=== PATIENT | female | born 1955 | race Caucasian/White ===

== ENCOUNTER → 2016-11-27 | Outpatient (CLI) | payer BC ==
[~2016-11-27] MED LIST: AMLO-110 PO; ASPCH81X PO; ATOR-24 PO; ELQ25 PO; METO50TA16 PO
--- NOTE | 2016-11-27 16:53 | DIAGNOSTIC IMAGING REPORT ---
LEFT FOOT MIN 3 VIEWS ROUTINE CLINICAL HISTORY: Left foot pain COMPARISON: None. DISCUSSION: No acute fractures are visualized. There are no erosive changes. There are osteoarthritic type changes at the level of the tarsometatarsal joints. IMPRESSION: 1. No acute fractures identified on conventional radiographic imaging 2. Osteoarthritic changes at the level of the tarsometatarsal joints Electronically signed by: Sky Glass M.D. 11/27/2016 4:52 PM Dictated Date/Time: 11/27/2016 4:51 PM
== END | disposition home or self-care (01) ==
LOC: C.RAD 16:36
PROVIDERS: ATTEND Family Medicine
DX: M84.375A Stress fracture, left foot, initial encounter for fracture (principal); X58.XXXA Exposure to other specified factors, initial encounter; M19.072 Primary osteoarthritis, left ankle and foot

== ENCOUNTER → 2016-12-06 | Outpatient (CLI) | payer BC ==
--- NOTE | 2016-12-09 15:13 | MAMMOGRAPHY REPORT ---
BILATERAL DIGITAL SCREENING MAMMOGRAM TOMOSYNTHESIS WITH CAD: 12/06/2016 TECHNIQUE: Breast tomosynthesis in addition to standard 2D mammography was performed. Current study was also evaluated with a Computer Aided Detection (CAD) system. COMPARISON: Comparison is made to exams dated: 08/24/2015 mammogram, 07/29/2014 mammogram, 05/04/2013 mammogram, and 06/26/2011 mammogram - [facility]. BREAST COMPOSITION: There are scattered areas of fibroglandular density in both breasts. FINDINGS: No suspicious masses, calcifications, or areas of architectural distortion are noted in e ither breast. There has been no significant interval change compared to prior exams. IMPRESSION: ACR BI-RADS CATEGORY 1: NEGATIVE There is no mammographic evidence of malignancy. A 1 year screening mammogram is recommended. The p atient will receive written notification of the results. Approximately 10% of breast cancers are not detected with mammography. A negative mammographic repor t should not delay biopsy if a clinically suggestive mass is present. Kirstin Mendosa M.D. ah/:12/06/2016 15:33:33 Hotel Ma[employer]: Eloisa HADLEY)([place]), [facility] letter sent: Normal 1/2 BI-RADS Code: ACR BI-RADS Category 1: Negative
== END | disposition home or self-care (01) ==
LOC: C.MAMM 14:52
PROVIDERS: ATTEND Obstetrics & Gynecology
DX: Z12.31 Encounter for screening mammogram for malignant neoplasm of breast (principal)

== ENCOUNTER 2021-12-13 05:25 | Observation (INO) ==
--- NOTE | 2021-12-05 10:11 | PAT Medication Instructions ---
Medication Instructions Date of Service December 05, 2021 Home Medications apixaban 5 mg tablet (Eliquis) 5 mg PO BID aspirin 81 mg capsule 81 mg PO HS docusate sodium 100 mg capsule (Colace) 100 mg PO DAILY PRN metoprolol succinate 50 mg tablet,extended release 24 hr 50 mg PO HS tramadol 50 mg tablet 50 mg PO BID PRN ASK your prescriber and surgeon apixaban 5 mg tablet (Eliquis) 5 mg PO BID (will need to stop medications 72 hours prior to surgery in order to get spinal anesthesia) DO NOT take the morning of surgery docusate sodium 100 mg capsule (Colace) 100 mg PO DAILY PRN Take morning of surgery With a small sip of water, OTHERWISE NOTHING TO EAT OR DRINK AFTER MIDNIGHT: tramadol 50 mg tablet 50 mg PO BID PRN (okay to take up to 4 hours prior to surgery if needed) Take evening before surgery aspirin 81 mg capsule 81 mg PO HS docusate sodium 100 mg capsule (Colace) 100 mg PO DAILY PRN (if needed) metoprolol succinate 50 mg tablet,extended release 24 hr 50 mg PO HS tramadol 50 mg tablet 50 mg PO BID PRN (if needed) Other Notes If you have any questions please call us at [phone] or [phone] or or [phone]
--- NOTE | 2021-12-05 12:14 | Anesthesiology Consultation ---
Date of Service December 05, 2021 Assessment & Plan (1) Encounter for pre-operative examination: Chart Review Chart Review: Acceptable Risk for Surgery (pending most recent cardio/PCP note and preop Covid testing results ) and Patient seen in Pre Admission Testing - Awaiting most recent cardio note 09/2021 - Awaiting most recent PCP note * Per patient- cardio instructed her to stop Eliquis 3 days prior. Continue ASA 81mg Per PAT appt on 12/05/21, patient denies any recent travel or large group activities. No known Covid positive exposures or Covid related symptoms. Pt states she did test Covid positive on 10/15/21 at the [facility] (she will attempt to get PAT results). Pt is vaccinated for Covid. Preop Covid testing scheduled 12/11/21 = will await results. Educated on importance of self quarantining, social distancing and wearing mask in public for the patient one week prior to surgery and after Covid testing done Teaching & Discussion Pre-Anesthesia Teaching/Discussion Notes: Instructed NPO after midnight before surgery,except medications with 15 cc of water. Medication instructions p rovided according to the PAT guidelines. History Surgery Operation Date: 12/13/21 10:40 Proposed Procedures p Left Total Hip Arthroplasty - Ramses Vicente MD Height/Weight Height: 5 ft 4.5 in Weight: 69.7 kg Allergies Allergy/AdvReac Type Severity Reaction Status Date / Time salmon oil Allergy Severe FACIAL Verified 12/05/21 09:09 SWELLING Medications Home Medications Medication Instructions Recorded Confirmed Last Taken apixaban 5 mg tablet (Eliquis) 5 mg PO BID 09/26/21 12/05/21 Unknown aspirin 81 mg capsule 81 mg PO HS 09/26/21 12/05/21 Unknown docusate sodium 100 mg capsule 100 mg PO DAILY PRN 09/26/21 12/05/21 Unknown (Colace) metoprolol succinate 50 mg 50 mg PO HS 09/26/21 12/05/21 Unknown tablet,extended release 24 hr tramadol 50 mg tablet 50 mg PO BID PRN 12/05/21 12/05/21 Unknown Past Medical History Medical History (Updated 12/05/21 @ 15:43 by Nakita Alston PA-C) History of COVID-19 10/15/21 [facility] *TERRIBLE COLD SYMPTOMS>FEELING BETTER NOW Hypertension Osteoarthritis PVCs (premature ventricular contractions) Asymptomatic Severe mitral regurgitation S/p MV repair 2016 Stroke 2016- 6 months after mitral valve repair d/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 ALEJANDRE; Mild stenosis, no regurgitation per 08/2021 echo History of cardiac cath DONE BEFORE MV REPAIR No CAD History of colonoscopy History of tooth extraction Nausea and vomiting after administration of anesthetic agent Past Anesthesia History No Hx of Anesthesia Complications (with exception to PONV ) and No Family Hx of Anesthesia Complications History of PONV No Hx of Motion Sickness and History of PONV Social History Smoking Status: Former smoker tobacco type: cigarettes Smoking End Date: 2015 Hx Alcohol Use: Yes Alcohol type: wine alcohol intake frequency: a few times a week substance use type: does not use Review of Systems Patient denies chest pain, shortness of breath, dyspnea on exertion, reflux, cough, wheezing, palpitations. No hx of seizures, [place], apnea/snoring. No hx of blood clots or blood transfusions Physical Exam Vital Signs VITALS BP 127/78 P 73 TEMP 97.7 SP02 94% RESP 16 Constitutional no acute distress ENMT Mouth: no TMJ clicking Thyromental Distance: > or= 3.5 Finger Breadths (3.5) Mallampati Class: III Missing molar Neck neck extension not limited Respiratory normal respiratory effort; no respiratory distress Auscultation: lungs clear to auscultation bilaterally; no wheezes Cardiovascular Rate/Rhythm: regular rate and regular rhythm Heart Sounds: no murmur Vessels: no carotid bruit Musculoskeletal Spine: no pain with cervical ROM Extremities: extremities normal to inspection Psychiatric Orientation: alert Lab Results Anesthesia Preop Results Results Anesthesia Widget: WBC 3.92 K/uL (4.8-10.8) L 12/05/21 Hgb 13.2 g/dL (12.0-16.0) 12/05/21 Hct 39.5 % (37-47) 12/05/21 Plt 254 K/uL (130-400) 12/05/21 Na 138 mmol/L (136-145) 12/05/21 K 5.0 mmol/L (3.5-5.1) 12/05/21 Cl 105 mmol/L (98-107) 12/05/21 CO2 29 mmol/L (21-32) 12/05/21 BUN 18 mg/dl (6-23) 12/05/21 Creat 0.61 mg/dl (0.6-1.2) 12/05/21 Fasting Glucose 102 mg/dl (70-99) H 12/05/21 PT 10.5 Seconds (9.0-12.0) 12/05/21 INR 1.0 (0.9-1.1) 12/05/21 HA1c 4.9 % (4.5-5.6) 12/05/21 Urine Color Yellow 12/05/21 Urine Appearance Clear (Clear) 12/05/21 Urine pH 5.0 (4.5-7.5) 12/05/21 Urine Specific [place] 1.023 (1.000-1.030) 12/05/21 Urine Protein Negative (Negative) 12/05/21 Urine Glucose (UA) Negative (Negative) 12/05/21 Urine Ketones Negative (Negative) 12/05/21 Urine Blood Negative (Negative) 12/05/21 Urine Nitrite Negative (Negative) 12/05/21 Urine Bilirubin Negative (Negative) 12/05/21 Urine Urobilinogen Negative (Negative) 12/05/21 Urine Leukocyte Esterase Negative (Negative) 12/05/21 Blood Type A Positive 12/05/21 Antibody Screen NEGATIVE 12/05/21 Testing Electrocardiogram Date: 11/30/21 Findings: + NSR @ (72bpm ) Possible LAE. Echocardiogram Date: 08/24/21 EF: 68% LV Function: normal RWMA: + none Other Findings: no LVH Mildly dilated right and left atrium Status post posterior mitral valve leaflet resection and MV repair with 26 mm annuloplasty ring. No MR. Mild mitral stenosis. MV mean pressure gradient is 5 mmHg. MVA by PHT is 1.5 cm. Compared to the previous study performed 08/21/2017, there is no change.
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
[2021-12-13] MEDS ORDERED: Scopolamine 1 MG TDSY TD SCH (06:00)
[2021-12-13] MEDS ORDERED: LR 500ML BOLUS, THEN 15ML/HR IV SCH (06:00)
[2021-12-13] MEDS ORDERED: LR 60ML/HR IV SCH (06:00)
[2021-12-13] MEDS ORDERED: traMADol HCL 50 MG TABLET PO SCH (06:00)
[2021-12-13] MEDS ORDERED: FAMOTIDINE 20 MG TAB PO SCH (06:00)
[2021-12-13] MEDS ORDERED: ROPIVACAINE 0.5% HCL/PF 150 MG, BUPIVACAINE 0.75% MPF 20 ML, EPINEPHrine 0.15 MG, Ketor... INFIL SCH (06:00)
[2021-12-13] MEDS ORDERED: CLINDAMYCIN 600 MG/54 ML BAG IV SCH (06:00)
[2021-12-13] MEDS ORDERED: ACETAMINOPHEN 500 MG TAB PO SCH (06:00)
[2021-12-13] MEDS ORDERED: TRANEXAMIC ACID 1,000 MG **IV Pre-op IV SCH (06:00)
[2021-12-13] MEDS ORDERED: TRANEXAMIC ACID 1,000 MG **IV Intra-op IV SCH (06:00)
[2021-12-13] MEDS ORDERED: BUPIVACAINE 0.5 % 5 MG/1 ML PF 10ML VIAL ONE (06:23)
[2021-12-13] MEDS ORDERED: MIDAZOLAM HCL 1 MG/ML 2ML VIAL ONE (06:29)
[2021-12-13] MEDS ORDERED: LIDOCAINE 2% 2 ML VIAL/AMP(20MG/ML) INFIL ONE (06:29)
[2021-12-13] MEDS ORDERED: ONDANSETRON INJ 2 MG/ML 2 ML VIAL ONE (06:29)
[2021-12-13] MEDS ORDERED: PROPOFOL IV EMULSION 10 MG/ML 20 ML VIAL IV ONE (06:29)
[2021-12-13] MEDS ORDERED: ePHEDrine sulfate 50 MG/ML AMP IV PRN (06:39)
[2021-12-13] MEDS ORDERED: fentaNYL citrate 100 MCG/2 ML VIAL IV PRN (06:39)
[2021-12-13] MEDS ORDERED: ATROPINE SULFATE 0.1 MG/ML 10ML SYR IV PRN (06:39)
[2021-12-13] MEDS ORDERED: ONDANSETRON INJ 2 MG/ML 2 ML VIAL IV PRN ×2 (06:39→08:39)
--- NOTE | 2021-12-13 06:46 | History & Physical Bridge Note ---
Date of Service December 13, 2021 History & Physical Bridge Note I have examined the patient, reviewed the History & Physical and in the interval since the performance of the History & Physical I have noted the following changes of clinical significance: no changes noted
[2021-12-13] MEDS ORDERED: ORTHO JOINT ANESTHETIC ONE (07:10)
--- NOTE | 2021-12-13 08:32 | Operative Report ---
Post Operative Report Pre & Post Diagnosis Operation Date: 12/13/21 07:00 Pre-Op Diagnosis: Left Hip Osteoarthritis Post-Op Diagnosis: Left Hip Osteoarthritis I identified the patient and participated in the time-out.: Yes Procedure Operation Date: 12/13/21 07:00 Actual Procedures p Left Total Hip Arthroplasty(Left) - Ramses Vicente MD Surgeon Ramses Vicente MD Nanotechnology Technician RENALDO Diana PA-C. No resident or fellow was available to assist. Estimated Blood Loss 100 Findings Consistent with Post-Op Diagnosis Specimens Left femoral head Anesthesia Type Spinal MAC Complications none Disposition Disposition: Recovery Room Indications 66-year-old female with left hip arthritis refractory to conservative management. X-rays demonstrate [id number] disease. I had a long discussion with her about the risks and benefits of surgery, alternatives to surgery, and expected outcomes. After reviewing all these she elected proceed with surgery. All questions were answered. Informed consent was signed. Description of Procedure Patient was identified in the preoperative holding area and the surgical site, left hip, was marked. A spinal anesthetic was placed, then the patient was brought back to the main operating room, placed in the operating table and moved into the lateral decubitus position. Axillary roll was placed. All bony prominences were padded. Perioperative antibiotics and tranexamic acid 1 gram IV were administered. Operative extremity was prepped and draped in the normal sterile fashion. Prior to incision a multidisciplinary timeout was called. All in the room were in agreement. We began by making an incision for a posterior approach to the hip. We dissected down through subcutaneous tissues to the level of the fascia. The fascia was incised in line with the incision. Charnley bow was placed. The trochanteric bursa was excised. The piriformis and short external rotators were dissected off the posterior aspect of the hip. A box cut was made in the capsule. The femoral head was dislocated. The femoral neck cut was made at our preoperative template. The acetabulum was then exposed. The labrum was sharply excised. Contents of the cotyloid fossa were removed with electrocautery. We then began reaming at a size 8 mm less than our preoperative template. We reamed up by 1 [address] the way up to a size 52 mm cup. This gave us good bleeding cancellus bone circumferentially. The acetabulum was then irrigated out and dried. The real [place] Gription cup was then impacted down into position with 45 degrees of lateral opening and 25 degrees of anteversion. A single cancellous bone screw was placed up into the ilium. Excellent fixation was obtained. An Altrx polyethylene liner for a 32 mm femoral head was then impacted into the shell. The locking mechanism was checked to ensure that it had engaged which it had. Anterior osteophytes were removed with a curved osteotome and pituitary rongeur. Next we turned our attention to the femur. The lateral neck was removed with a box osteotome. Intramedullary guide was used followed by the lateralizing reamer. We then reamed up to a size 5 Monroe stem. We then broached all the way up to a size 4. We began trialing with a high offset neck and a +1 head. Hip was reduced. Leg lengths were symmetric. The hip was stable in extension and external rotation, and stable in the sleeper position. At 90 degrees of hip flexion the hip could be internally rotated 50 degrees before levering out of the cup. I was very happy with the stability exam. Therefore the hip was dislocated and the femoral trial was removed. The femoral canal was irrigated and dried. The real size 4 high offset Monroe femoral stem was opened up. This was impacted down into position. It sat at the same level as the femoral trial. Therefore the 32 mm ceramic femoral head with a +1 mm offset was opened up and gently impacted down onto the trunnion. The hip was atraumatically reduced. Another 1 gram of IV tranexamic acid was started prior to closure. The wound was irrigated out with sterile Betadine solution. The periarticular injection cocktail was then placed. The short external rotators, piriformis, and posterior capsule were repaired through drill holes in the greater trochanter using #2 Vicryl. The fascia was run with a looped #1 PDS. The subcutaneous layer was closed with #1 PDS. The dermal layer was closed with 2-0 Vicryl. Zip line was used for the skin followed by a Silverlon dressing. A compressive dressing was then placed. The patient was then rolled supine. Leg lengths were rechecked and were symmetric. An abduction pillow was placed. Sedation was lifted and the patient was transferred to recovery room in stable condition. Summary of implants: Depuy [place] Gription Acetabular Shell Sector Cup, 52 mm outer diameter [place] Cancellous bone screw, 6.5 x 40 mm [place] Altrx Polyethylene Acetabular Liner, Neutral, with a 32 mm inner d iameter DePuy [place] Femoral stem with Por[place]oat, 12/14 taper, size 4 high offset 32 mm ceramic femoral head with +1 offset Postoperative course: Patient will be admitted to the hospital from the recovery room. Patient will be weightbearing as tolerated with posterior hip precautions. Aspirin for DVT prophylaxis I attest to the content of the Intraoperative Record and any orders documented therein. Any exceptions are noted below.
[2021-12-13] MEDS ORDERED: diphenhydrAMINE 50 MG/ML VIAL IV PRN (08:39)
[2021-12-13] MEDS ORDERED: bisacodyL 10 MG SUPP PR PRN (08:39)
[2021-12-13] MEDS ORDERED: METOCLOPRAMIDE HCL INJ 5 MG/ML 2 ML VIAL IV PRN (08:39)
[2021-12-13] MEDS ORDERED: MAGNESIUM HYDROXIDE SUSP 30 ML UDC PO PRN (08:39)
[2021-12-13] MEDS ORDERED: NALOXONE HCL 0.4 MG/1 ML VIAL/CARP IV PRN (08:39)
[2021-12-13] MEDS ORDERED: oxyCODONE HCL IR 5 MG TAB (IMMEDIATE RELEASE) PO PRN (08:39)
[2021-12-13] MEDS ORDERED: ALUMINUM/MAGNESIUM SUSP 30 ML UDC PO PRN (08:39)
--- NOTE | 2021-12-13 08:39 | Operative Report ---
Post Operative Report Pre & Post Diagnosis Operation Date: 12/13/21 07:00 Pre-Op Diagnosis: Left Hip Osteoarthritis Post-Op Diagnosis: Left Hip Osteoarthritis I identified the patient and participated in the time-out.: Yes Procedure Operation Date: 12/13/21 07:00 Actual Procedures p Left Total Hip Arthroplasty(Left) - Ramses Vicente MD Surgeon Ramses Vicente MD Relocation Associate RENALDO Diana PA-C. No resident or fellow was available to assist. Estimated Blood Loss 100 Findings Consistent with Post-Op Diagnosis Specimens left femoral head Description of Procedure I was present during the entire procedure assisting with positioning, prepping, draping, wound retraction, wound closure, dressing and abduction pillow placement. No fellow present. Please see Dr. Vicente procedure note for specifics of the case. I attest to the content of the Intraoperative Record and any orders documented therein. Any exceptions are noted below.
[2021-12-13] MEDS ORDERED: DOCUSATE SODIUM 100 MG CAP PO PRN (08:44)
[2021-12-13] MEDS ORDERED: traMADol HCL 50 MG TABLET PO PRN (08:44)
[2021-12-13] MEDS ORDERED: APIXABAN 5 MG TABLET PO SCH (09:00)
--- NOTE | 2021-12-13 09:00 | XRay Report ---
XR pelvis 1-2V routine HISTORY: 66 years-old Female Post Surgical left hip total joint arthroplasty COMPARISON: Pelvis radiograph 12/05/2021 TECHNIQUE: AP view of the pelvis FINDINGS: Left hip total joint arthroplasty. Expected postoperative soft tissue swelling and deep tissue air aguilar rrounding the left hip. Moderate right hip osteoarthritis. Surgical clips of the left inguinal tissue s. No acute fracture or unexpected opaque foreign body. IMPRESSION: Left hip total joint arthroplasty with expected postoperative findings. ACT 112: Negative or not required by law. The above report was generated using voice recognition software. It may contain grammatical, syntax o r spelling errors. Electronically signed by: Fabrice Dobbs M.D. 12/13/2021 8:59 AM
[2021-12-13] MEDS: SODIUM CHLORIDE 0.9% 1000ML 1,000 ML IV SCH ×2 (12:00→22:14)
--- NOTE | 2021-12-13 12:25 | Anesthesiology Progress Note ---
Date of Service December 13, 2021 Anesthesia Post Procedure Vital Signs Vital Signs: Temp Pulse Pulse Resp BP BP Pulse Ox 12/13/21 11:25 61 17 107/67 97 12/13/21 10:55 60 18 110/68 92 12/13/21 10:25 57 L 18 111/68 91 12/13/21 10:10 57 L 15 108/66 96 12/13/21 09:55 60 18 107/68 95 12/13/21 09:40 59 L 20 108/66 94 12/13/21 09:25 97.0 F L 59 L 16 103/69 94 12/13/21 09:15 61 19 92/58 L 97 12/13/21 09:05 61 17 93/57 L 93 12/13/21 08:55 61 16 96/65 L 100 12/13/21 08:45 64 20 87/49 L 99 12/13/21 08:37 97.2 F L 68 20 96/58 L 98 12/13/21 05:50 97.7 F 74 20 137/96 95 Transfer of Care Handoff Completed per policy Notes Mental Status: alert / awake / arousable and participated in evaluation Patient Amnestic to Procedure: Yes Nausea / Vomiting: adequately controlled Pain: adequately controlled Airway Patency, RR, SpO2: stable & adequate BP & HR: stable & adequate Hydration State: stable & adequate Neuraxial Anesthesia: was administered and sensory block is resolving Anesthetic Complications: no major complications apparent and Pt Satisfied with anesthetic care
[2021-12-13] MEDS: MULTIVITAMIN TAB PO SCH (13:31)
[2021-12-13] MEDS: APIXABAN 2.5 MG TAB PO SCH ×2 (13:31→20:45)
[2021-12-13] MEDS: CeleBREX 200 MG CAP PO SCH ×2 (13:31→20:44)
[2021-12-13] MEDS: DOCUSATE SODIUM 100 MG CAP PO SCH ×2 (13:31→20:48)
[2021-12-13] MEDS: ACETAMINOPHEN 500 MG TAB PO SCH ×2 (13:31→22:15)
[2021-12-13] MEDS: KETOROLAC TROMETHAMINE 15 MG/ML VIAL IV SCH ×3 (13:35→22:16)
[2021-12-13] MEDS ORDERED: TRANEXAMIC ACID / 0.7% NACL 1,000 MG/100 ML BAG IV SCH (14:45)
[2021-12-13] MEDS: CLINDAMYCIN 600 MG in DEXTROSE 5% 50 ML IV SCH ×2 (15:24→22:14)
[2021-12-13] MEDS: Scopolamine CHECK PATCH PLACEMENT SCH ×2 (16:02→23:37)
[2021-12-13] MEDS ORDERED: ASPIRIN 81 MG ECTAB PO SCH (21:00)
[2021-12-13] MEDS ORDERED: SENNA 8.6 MG TAB PO SCH (21:00)
[2021-12-13] MEDS ORDERED: METOPROLOL SUCC 50MG EXT REL TAB PO SCH (21:00)
[2021-12-14] MEDS: KETOROLAC TROMETHAMINE 15 MG/ML VIAL IV SCH (04:34)
[2021-12-14] MEDS: ACETAMINOPHEN 500 MG TAB PO SCH ×2 (05:34→14:44)
[2021-12-14] MEDS: SODIUM CHLORIDE 0.9% 1000ML 1,000 ML IV SCH (06:10)
[2021-12-14 06:17] LABS: Basophils # (auto) 0.03 K/uL (0-0.2); Basophils % (auto) 0.5 %; Eosinophils # (auto) 0.04 K/uL (0-0.5); Eosinophils % (auto) 0.7 %; Hematocrit (blood only) 32.7 % (37-47); Hemoglobin 10.9 g/dL (12.0-16.0); Immature Granulocytes # (auto) 0.01 K/uL (0.00-0.02); Immature Granulocytes % (auto) 0.2 %; Lymphocytes # (auto) 0.75 K/uL (1.2-3.4); Lymphocytes % (auto) 12.4 %; Mean Corpuscular Hemoglobin 32.6 pg (25-34); Mean Corpuscular Hgb Conc 33.3 g/dL (32-36); Mean Corpuscular Volume 97.9 fL (80-100); Mean Platelet Volume 10.6 fL (7.4-10.4); Monocytes # (auto) 0.58 K/uL (0.11-0.59); Monocytes % (auto) 9.6 %; Neutrophils # (auto) 4.64 K/uL (1.4-6.5); Neutrophils % (auto) 76.6 %; Platelet Count 189 K/uL (130-400); RDW Coefficient of Variation 13.5 % (11.5-14.5); RDW Standard Deviation 48.1 fL (36.4-46.3); Red Blood Count 3.34 M/uL (4.2-5.4); White Blood Count 6.05 K/uL (4.8-10.8)
[2021-12-14 06:47] LABS: Calcium 8.2 mg/dl (8.5-10.1); Creatinine Clr Calc Pharmacy 102.8 ml/min; Est GFR (African American) 116.3 ml/min; Est GFR (Non-African American) 100.3 ml/min; Potassium 4.3 mmol/L (3.5-5.1)
[2021-12-14] MEDS: Scopolamine CHECK PATCH PLACEMENT SCH (07:30)
[2021-12-14] MEDS ORDERED: dexAMETHasone 4 MG TAB PO SCH (08:00)
[2021-12-14] MEDS: MULTIVITAMIN TAB PO SCH (09:04)
[2021-12-14] MEDS: CeleBREX 200 MG CAP PO SCH (09:05)
[2021-12-14] MEDS: APIXABAN 2.5 MG TAB PO SCH (09:05)
[2021-12-14] MEDS: DOCUSATE SODIUM 100 MG CAP PO SCH (09:08)
--- NOTE | 2021-12-14 13:30 | Orthopedic Progress Note ---
Date of Service December 14, 2021 Assessment & Plan (1) S/P total hip arthroplasty: Plan: Weightbearing as tolerated with walker assistance Total hip precautions were reviewed PT/OT Keep Silverlon in place DVT prophylaxis with Eliquis, aspirin and teds Pain control with p.o. medication Ice with easy wrap Follow-up with [facility] orthopedics as previously instructed With questions contact our clinic at [phone] Plan on discharge home today with in-home physical therapy for the first 2 weeks postoperatively. Admission and Anticipated Discharge Date Admission Date: December 13, 2021 Subjective This 66-year-old female is day 1 status post left total hip arthroplasty. She states she is doing very well. She is very anxious to be discharged home. States her pain is well controlled with p.o. pain medication. She states that last night she did have some nausea that was controlled with IV antiemetic medication. She states that she has met with case management and set up for in- home physical therapy for the first 2 weeks postoperatively. Currently she denies Chest pain, shortness of breath, fever, chills, sweats, lethargy, nausea, vomiting, diarrhea or difficulty urinating. Patient also denies any numbness or tingling in her left lower extremity. Review of Systems Review of Systems: All systems reviewed & are unremarkable except as noted in Subjective Physical Exam Physical Exam: Left hip: Outer dressing was removed. Silverlon is intact with no saturation. Patient is able to perform an active straight leg raise test. She is able to actively dorsi and plantarflex her foot. Knee range of motion is from 0 to 90 degrees without difficulty. Light passive hip flexion causes no pain. Light passive internal and external hip rotation causes no pain. Logroll test negative. Quad strength is 1-5. Patient is neurovascularly intact in left lower extremity. Results & Data ([facility]) Vital Signs (Past 12 Hours) Vital Signs Temp Pulse Pulse Resp BP BP Pulse Ox 12/14/21 13:17 36.9 C 70 69 16 105/67 97/61 L 94 12/14/21 07:29 36.9 C 70 16 105/67 94 12/14/21 04:31 36.8 C 69 14 97/61 L 93 Diagnostic Findings Laboratory Results WBC 6.05 K/uL (4.8-10.8) 12/14/21 06:04 RBC 3.34 M/uL (4.2-5.4) L 12/14/21 06:04 Hgb 10.9 g/dL (12.0-16.0) L 12/14/21 06:04 Hct 32.7 % (37-47) L 12/14/21 06:04 MCV 97.9 fL (80-100) 12/14/21 06:04 MCH 32.6 pg (25-34) 12/14/21 06:04 MCHC 33.3 g/dL (32-36) 12/14/21 06:04 RDW Std Deviation 48.1 fL (36.4-46.3) H 12/14/21 06:04 RDW Coeff of Aimee 13.5 % (11.5-14.5) 12/14/21 06:04 Plt Count 189 K/uL (130-400) 12/14/21 06:04 MPV 10.6 fL (7.4-10.4) H 12/14/21 06:04 Immature Gran % (Auto) 0.2 % 12/14/21 06:04 Neut % (Auto) 76.6 % 12/14/21 06:04 Lymph % (Auto) 12.4 % 12/14/21 06:04 Love % (Auto) 9.6 % 12/14/21 06:04 Eos % (Auto) 0.7 % 12/14/21 06:04 Baso % (Auto) 0.5 % 12/14/21 06:04 Neut # (Auto) 4.64 K/uL (1.4-6.5) 12/14/21 06:04 Lymph # (Auto) 0.75 K/uL (1.2-3.4) L 12/14/21 06:04 Love # (Auto) 0.58 K/uL (0.11-0.59) 12/14/21 06:04 Eos # (Auto) 0.04 K/uL (0-0.5) 12/14/21 06:04 Baso # (Auto) 0.03 K/uL (0-0.2) 12/14/21 06:04 Immature Gran # (Auto) 0.01 K/uL (0.00-0.02) 12/14/21 06:04 Sodium 137 mmol/L (136-145) 12/14/21 06:04 Potassium 4.3 mmol/L (3.5-5.1) 12/14/21 06:04 Chloride 108 mmol/L (98-107) H 12/14/21 06:04 Carbon Dioxide 25 mmol/L (21-32) 12/14/21 06:04 Anion Gap 4 (3-11) 12/14/21 06:04 BUN 9 mg/dl (6-23) 12/14/21 06:04 Creatinine 0.53 mg/dl (0.6-1.2) L 12/14/21 06:04 Est Cr Clr Drug Dosing 102.8 ml/min 12/14/21 06:04 Est GFR ( Amer) 116.3 ml/min 12/14/21 06:04 Est GFR (Non-Af Amer) 100.3 ml/min 12/14/21 06:04 BUN/Creatinine Ratio 17.0 (10-20) 12/14/21 06:04 Glucose 123 mg/dl (70-99(Fasting)) H 12/14/21 06:04 Calcium 8.2 mg/dl (8.5-10.1) L 12/14/21 06:04 SARS-CoV-2, RNA, NAAT NEGATIVE (NEGATIVE) 12/13/21 05:40 Impressions Pelvis X-Ray 12/13/21 08:40 XR pelvis 1-2V routine HISTORY: 66 years-old Female Post Surgical left hip total joint arthroplasty COMPARISON: Pelvis radiograph 12/05/2021 TECHNIQUE: AP view of the pelvis FINDINGS: Left hip total joint arthroplasty. Expected postoperative soft tissue swelling and deep tissue air surrounding the left hip. Moderate right hip osteoarthritis. Surgical clips of the left inguinal tissues. No acute fracture or unexpected opaque foreign body. IMPRESSION: Left hip total joint arthroplasty with expected postoperative findings. ACT 112: Negative or not required by law. The above report was generated using voice recognition software. It may contain grammatical, syntax or spelling errors. Electronically signed by: Fabrice Dobbs M.D. 12/13/2021 8:59 AM
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
[2021-12-14] MEDS ORDERED: APIXABAN 5 MG TABLET PO SCH (21:00)
== END 2021-12-14 14:49 | disposition home health service (06) ==
LOC: PACUINP 05:25 → ASU 05:25 → 3E 12:09

== ENCOUNTER 2023-02-08 12:58 | Observation (INO) ==
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
[2023-02-08] MEDS ORDERED: fentaNYL citrate PF 100 MCG/2 ML VIAL IV ONE (15:23)
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
[2023-02-08] MEDS ORDERED: MoRPHine SULFATE 4 MG/ML 1 ML CARP\\VIAL IV STA (17:38)
[2023-02-08 18:31] LABS: Basophils # (auto) 0.03 K/uL (0-0.2); Basophils % (auto) 0.3 %; Eosinophils # (auto) 0.02 K/uL (0-0.50); Eosinophils % (auto) 0.2 %; Hematocrit (blood only) 39.7 % (37.0-47.0); Hemoglobin 13.7 g/dl (12.0-16.0); Immature Granulocytes # (auto) 0.05 K/uL (0.01-0.20); Immature Granulocytes % (auto) 0.5 %; Lymphocytes # (auto) 0.63 K/uL (1.2-3.4); Lymphocytes % (auto) 6.1 %; Mean Corpuscular Hgb Conc 34.5 g/dL (32.0-36.0); Mean Corpuscular Volume 95.7 fL (80.0-100.0); Mean Platelet Volume 10.8 fL (9.4-12.4); Monocytes # (auto) 0.55 K/uL (0.11-0.59); Monocytes % (auto) 5.4 %; Neutrophils # (auto) 8.99 K/uL (1.40-6.50); Neutrophils % (auto) 87.5 %; Platelet Count 210 K/uL (130-400); RDW Coefficient of Variation 12.4 % (11.5-14.5); RDW Standard Deviation 43.7 fL (36.4-46.3); Red Blood Count 4.15 M/uL (4.20-5.40); White Blood Count 10.27 K/ul (4.8-10.8)
[2023-02-08 18:37] LABS: Alanine Aminotransferase 15 U/L (7-52); Albumin Globulin Ratio 1.8 (0.9-2); Albumin Level 4.2 gm/dl (3.4-5.0); Alkaline Phosphatase 80 U/L (34-104); Anion Gap 7 (3-11); Aspartate Aminotransferase 23 U/L (13-39); BUN Creatinine Ratio 20.9 (10-20); Bilirubin,Total 0.8 mg/dl (0.2-1.0); Blood Urea Nitrogen 14 mg/dl (6-23); Calcium 9.1 mg/dl (8.6-10.3); Carbon Dioxide 26 mmol/L (21-32); Chloride 106 mmol/L (98-107); Est GFR (African American) 106.9 ml/min; Est GFR (Non-African American) 92.2 ml/min; Globulin 2.4 gm/dl (2.5-4.0); Glucose 114 mg/dl (70-99(Fasting)); Potassium 4.1 mmol/L (3.5-5.1); Sodium 139 mmol/L (136-145); Total Protein 6.6 gm/dl (6.0-8.3)
[2023-02-08 18:45] LABS: INR 1.1 (0.9-1.1); Partial Thromboplastin Time 27.1 Seconds (21.0-31.0); Prothrombin Time 11.6 Seconds (9.0-12.0)
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
[2023-02-08] MEDS ORDERED: MoRPHine SULFATE 4 MG/ML 1 ML CARP\\VIAL IV PRN (21:23)
[2023-02-08] MEDS ORDERED: ONDANSETRON INJ 2 MG/ML 2 ML VIAL IV PRN (21:23)
[2023-02-08] MEDS ORDERED: MoRPHine SULFATE 2 MG/ML CARP IV PRN (21:23)
[2023-02-08] MEDS ORDERED: POLYETHYLENE (MIRALAX) 17 GM PACK PO PRN (21:23)
[2023-02-08] MEDS: METOPROLOL SUCC 50MG EXT REL TAB PO SCH (22:32)
[2023-02-08] MEDS: ACETAMINOPHEN 500 MG TAB PO SCH (22:32)
[2023-02-09 08:01] LABS: BUN Creatinine Ratio 21.1 (10-20); Blood Urea Nitrogen 12 mg/dl (6-23); Calcium 8.4 mg/dl (8.6-10.3); Carbon Dioxide 24 mmol/L (21-32); Chloride 106 mmol/L (98-107); Creatinine Clr Calc Pharmacy 95.8 ml/min; Est GFR (African American) 112.7 ml/min; Est GFR (Non-African American) 97.3 ml/min; Glucose 95 mg/dl (70-99(Fasting))
[2023-02-09] MEDS: ACETAMINOPHEN 500 MG TAB PO SCH ×3 (08:04→20:25)
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
[2023-02-09 08:28] LABS: Basophils # (auto) 0.03 K/uL (0-0.2); Basophils % (auto) 0.5 %; Eosinophils # (auto) 0.19 K/uL (0-0.50); Eosinophils % (auto) 3.1 %; Hematocrit (blood only) 37.6 % (37.0-47.0); Hemoglobin 12.8 g/dl (12.0-16.0); Immature Granulocytes # (auto) 0.01 K/uL (0.01-0.20); Immature Granulocytes % (auto) 0.2 %; Lymphocytes # (auto) 0.69 K/uL (1.2-3.4); Lymphocytes % (auto) 11.3 %; Mean Corpuscular Hemoglobin 32.4 pg (25.0-34.0); Mean Corpuscular Volume 95.2 fL (80.0-100.0); Mean Platelet Volume 10.5 fL (9.4-12.4); Monocytes # (auto) 0.57 K/uL (0.11-0.59); Monocytes % (auto) 9.3 %; Neutrophils # (auto) 4.64 K/uL (1.40-6.50); Neutrophils % (auto) 75.6 %; Platelet Count 177 K/uL (130-400); RDW Coefficient of Variation 12.5 % (11.5-14.5); RDW Standard Deviation 43.5 fL (36.4-46.3); Red Blood Count 3.95 M/uL (4.20-5.40); White Blood Count 6.13 K/ul (4.8-10.8)
[2023-02-09 08:40] LABS: Potassium 3.9 mmol/L (3.5-5.1)
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
[2023-02-09 09:28] LABS: Magnesium 1.9 mg/dl (1.7-2.4)
--- NOTE | 2023-02-09 09:31 | XRay Report ---
XR chest 2V PA/lateral HISTORY: 67 years-old Female lung nodule follow-up study in a patient with a possible lung nodule COMPARISON: 02/08/2023 TECHNIQUE: AP and lateral views of the chest FINDINGS: Cardiac silhouette is enlarged. Cardiac valvular prosthesis. No pneumothorax, pleural effusion or air space consolidation. Previously described Ill-defined 1.4 cm nodular focus of the right upper lung is not identified on today's study. Mild cortical irregularity of the lateral right sixth rib again not ed. Mild right hemidiaphragmatic elevation. Degenerative changes of the shoulders and spine. IMPRESSION: 1. Cardiomegaly without acute process of the chest. 2. The previously questioned nodular density of the right upper lung is not seen on today's study. ACT 112: Negative or not required by law. The above report was generated using voice recognition software. It may contain grammatical, syntax o r spelling errors. Electronically signed by: Fabrice Dobbs M.D. 02/09/2023 9:29 AM
[2023-02-09 10:41] LABS: Appearance Urine Clear (Clear); Bilirubin Urine Negative (Negative); Blood Urine Negative (Negative); Color Urine Yellow; Glucose Urine UA Negative (Negative); Ketones Urine Negative (Negative); Leukocyte Esterase Urine Negative (Negative); Nitrite Urine Negative (Negative); Protein Urine Negative (Negative); Specific Gravity Urine 1.022 (1.000-1.030); Urobilinogen Urine Negative (Negative); pH Urine 5.5 (4.5-7.5)
[2023-02-09] MEDS ORDERED: ASPIRIN 81 MG ECTAB PO SCH (10:45)
[2023-02-09] MEDS: APIXABAN 5 MG TABLET PO SCH ×2 (12:46→20:25)
[2023-02-09] MEDS: oxyCODONE HCL IR 5 MG TAB (IMMEDIATE RELEASE) PO PRN ×2 (13:44→19:36)
[2023-02-09] MEDS: DOCUSATE SODIUM/SENNA 50/8.6MG TAB PO SCH (13:44)
--- NOTE | 2023-02-09 14:09 | Electrocardiogram Report ---
Test Reason : Blood Pressure : / mmHG Vent. Rate : 083 BPM Atrial Rate : 083 BPM P-R Int : 152 ms QRS Dur : 064 ms QT Int : 400 ms P-R-T Axes : -03 031 045 degrees QTc Int : 470 ms Poor data quality, interpretation may be adversely affected Normal sinus rhythm Normal ECG When compared with ECG of 27-JUN-2005 12:46, QRS duration has decreased Nonspecific T wave abnormality now evident in Anterior leads Confirmed by Campbell Dyer ([id number]) on 02/09/2023 2:08:58 PM Referred By: REFERRED SELF Confirmed By:Campbell Dyer
[2023-02-09] MEDS: METOPROLOL SUCC 50MG EXT REL TAB PO SCH (20:25)
[2023-02-10] MEDS: oxyCODONE HCL IR 5 MG TAB (IMMEDIATE RELEASE) PO PRN ×2 (06:31→10:45)
[2023-02-10 07:30] LABS: Hematocrit (blood only) 33.5 % (37.0-47.0); Hemoglobin 11.6 g/dl (12.0-16.0); Mean Corpuscular Hemoglobin 32.8 pg (25.0-34.0); Mean Corpuscular Hgb Conc 34.6 g/dL (32.0-36.0); Mean Corpuscular Volume 94.6 fL (80.0-100.0); Mean Platelet Volume 10.4 fL (9.4-12.4); Platelet Count 160 K/uL (130-400); RDW Coefficient of Variation 12.4 % (11.5-14.5); RDW Standard Deviation 43.2 fL (36.4-46.3); Red Blood Count 3.54 M/uL (4.20-5.40); White Blood Count 5.64 K/ul (4.8-10.8)
[2023-02-10 07:53] LABS: BUN Creatinine Ratio 17.2 (10-20); Calcium 8.5 mg/dl (8.6-10.3); Creatinine Clr Calc Pharmacy 94.2 ml/min; Est GFR (African American) 112.1 ml/min; Est GFR (Non-African American) 96.7 ml/min; Magnesium 1.8 mg/dl (1.7-2.4); Potassium 4.1 mmol/L (3.5-5.1)
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
[2023-02-10] MEDS: DOCUSATE SODIUM/SENNA 50/8.6MG TAB PO SCH (08:36)
[2023-02-10] MEDS: ACETAMINOPHEN 500 MG TAB PO SCH (08:36)
--- NOTE | 2023-02-10 10:30 | Orthopedic Progress Note ---
Date of Service February 10, 2023 Assessment & Plan (1) Closed fracture of right superior pubic ramus: Plan: She may weight-bear as tolerated on her right lower extremity with the assistance of a platform walker or quad cane. PT and OT as ordered. Ice to right hip as needed for pain and swelling. Active range of motion of her right hip, right knee and right ankle as tolerated. Follow-up in approximately 2 weeks as an outpatient for repeat x-rays of her pelvis. DVT as per medicine or an aspirin 81 mg daily for DVT prophylaxis (2) Closed fracture of left distal radius: Plan: No immobilization necessary of her left upper extremity. Ice and elevation as needed for pain or swelling. Allowed for active range of motion of her fingers, wrist and forearm and left hand. Nonweightbearing through the left wrist itself. May weight-bear through the forearm with a platform walker. No use of cane in her left hand. Follow-up in 2 weeks as scheduled for repeat x-rays of her left wrist. May use for light daily activities although no heavy pushing pulling or lifting. Admission and Anticipated Discharge Date Admission Date: February 08, 2023 Subjective Doing well this morning. Just finished her exercises with physical therapy. She has been using the quad cane in her right hand and feels most stable on this. Her left wrist is feeling much better. Less bruise. Less swollen. Right hip feels stiff and sore but otherwise has been managing. Physical Exam Musculoskeletal: Tolerates active range of motion of her hip, knee and ankle of her right lower extremity. No distal edema. Dorsalis pedis and posterior tibial pulses are 1+. Distal sensation is normal. She tolerates gentle range of motion of the left wrist. Mildly edematous. Mildly ecchymotic. Full range of motion of her fingers with flexion and extension. Distal pulses are 1+. Capillary fill is brisk. Distal sensation is normal in her left upper extremity. Results & Data Vital Signs (Past 12 Hours) Vital Signs Temp Pulse Pulse Resp BP Pulse Ox O2 Del Method 02/10/23 09:45 36.3 C L 75 73 16 119/79 97 02/10/23 07:02 36.3 C L 73 16 119/79 97 Room Air
[2023-02-10] MEDS ORDERED: ONDANSETRON 4 MG OD TAB PO STA (11:51)
== END 2023-02-10 13:22 | disposition home health service (06) ==
LOC: 3N 12:58 → ED 12:58 → SUATTDRO 18:10 → 3N 20:38

== ENCOUNTER 2024-12-02 05:17 | Observation (INO) ==
--- NOTE | 2024-11-18 12:54 | PAT Medication Instructions ---
Medication Instructions Date of Service November 18, 2024 Home Medications apixaban 5 mg tablet (Eliquis) 5 mg PO BID aspirin 81 mg capsule 81 mg PO HS metoprolol succinate 50 mg tablet,extended release 24 hr 50 mg PO HS acetaminophen 500 mg tablet (Tylenol Extra Strength) 1,000 mg PO TID PRN Pain ASK your prescriber and surgeon apixaban 5 mg tablet (Eliquis) 5 mg PO BID (From anesthesia perspective, Apixaban/Eliquis needs to be stopped 72 hours/3 days before surgery. Please check if okay with doctor that prescribes this to you) aspirin 81 mg capsule 81 mg PO HS Take morning of surgery With a small sip of water, OTHERWISE NOTHING TO EAT OR DRINK AFTER MIDNIGHT: acetaminophen 500 mg tablet (Tylenol Extra Strength) 1,000 mg PO TID PRN Pain (if needed) Take evening before surgery metoprolol succinate 50 mg tablet,extended release 24 hr 50 mg PO HS acetaminophen 500 mg tablet (Tylenol Extra Strength) 1,000 mg PO TID PRN Pain (if needed) Other Notes If you have any questions please call us at [phone] or [phone] or [phone] or [phone]
--- NOTE | 2024-11-18 12:54 | PAT Medication Instructions ---
Medication Instructions Date of Service November 18, 2024 Home Medications apixaban 5 mg tablet (Eliquis) 5 mg PO BID aspirin 81 mg capsule 81 mg PO HS metoprolol succinate 50 mg tablet,extended release 24 hr 50 mg PO HS acetaminophen 500 mg tablet (Tylenol Extra Strength) 1,000 mg PO TID PRN ASK your prescriber and surgeon apixaban 5 mg tablet (Eliquis) 5 mg PO BID(in order for spinal or epidural anesthesia, Eliquis needs to be stopped 72 hours/3 days before surgery. Please check if okay with doctor that prescribes this to you) aspirin 81 mg capsule 81 mg PO HS Take morning of surgery With a small sip of water, OTHERWISE NOTHING TO EAT OR DRINK AFTER MIDNIGHT: acetaminophen 500 mg tablet (Tylenol Extra Strength) 1,000 mg PO TID PRN(if needed) Take evening before surgery metoprolol succinate 50 mg tablet,extended release 24 hr 50 mg PO HS acetaminophen 500 mg tablet (Tylenol Extra Strength) 1,000 mg PO TID PRN(if needed) Other Notes If you have any questions please call us at [phone] or [phone] or [phone] or [phone]
--- NOTE | 2024-11-22 14:22 | Anesthesiology Consultation ---
Date of Service November 22, 2024 Assessment & Plan (1) Encounter for pre-operative examination: - patient reports that still had post-op nausea and vomiting with left ARMEN despite Zofran. Left ARMEN 12/13/21 SAB L4-L5 2 attempts. - Outpatient joint assessment: Patient is currently scheduled for inpatient pathway. If re-evaluated and patient/surgeon requests outpatient pathway, patient is not ideal candidate for outpatient joint program from anesthesia standpoint. Chart Review Chart Review: Acceptable Risk for Surgery and Patient seen in Pre Admission Testing Teaching & Discussion Pre-Anesthesia Teaching/Discussion Notes: Instructed NPO after midnight before surgery, except medications with 15 cc of water. Medication instructions provided according to the PAT guidelines. History Surgery Operation Date: 12/02/24 08:50 Proposed Procedures p Right Total Hip Arthroplasty - Ramses Vicente MD Height/Weight Height: 5 ft 4.5 in Weight: 70.6 kg Allergies Allergy/AdvReac Type Severity Reaction Status Date / Time salmon oil Allergy Severe Facial Verified 11/22/24 11:42 Swelling Medications Home Medications Medication Instructions Recorded Confirmed Last Taken apixaban 5 mg tablet (Eliquis) 5 mg PO BID 09/26/21 11/18/24 12/10/21 08:00 aspirin 81 mg capsule 81 mg PO HS 09/26/21 11/18/24 12/12/21 21:00 metoprolol succinate 50 mg 50 mg PO HS 09/26/21 11/18/24 12/12/21 21:00 tablet,extended release 24 hr acetaminophen 500 mg tablet 1,000 mg PO TID PRN Pain 11/18/24 11/18/24 Unknown (Tylenol Extra Strength) Past Medical History Medical History History of stroke (~2015) 2016- 6 months after 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 Clark History of COVID-19 (~09/2021) 09/2021- severe cold symptoms, denies hospitalization-resolved PVCs (premature ventricular contractions) Asymptomatic Osteoarthritis Hypertension controlled, stable per pt; white coat HTN Patient denies h/o seizures, heart attack, heart failure, DM, blood clots/DVTs or blood transfusions. Exercise / Class Metabolic Activity II 4-5 Yardwork/Stairs/Walk up hill (denies chest discomfort or shortness of breath with one flight of stairs) Past Family History Family History Mother Hypertension Other No family history of adverse response to anesthesia Past Surgical History Surgical History History of left hip replacement Left ARMEN (12/13/2021): SAB at L4-5 (2 attempts) at [facility] History of cardiac cath Done prior to MV repair (2015)- no stents, "No CAD" History of colonoscopy History of tooth extraction H/O mitral valve repair 2015, [facility] [place] Nausea and vomiting after administration of anesthetic agent Past Anesthesia History No Hx of Anesthesia Complications and No Family Hx of Anesthesia Complications History of PONV No Hx of Motion Sickness and History of PONV (does well with IV pre-dosing, denies needing scop patch) Social History Smoking Status: Former smoker tobacco type: cigarettes Do You Dip or Chew Tobacco: No Smoking End Date: 2015 Hx Alcohol Use: Yes Alcohol type: wine alcohol intake frequency: a few times a week Hx Substance Use: No substance use type: does not use Review of Systems Snoring, denies witnessed apneas. Patient denies chest pain, shortness of breath, dyspnea on exertion, reflux, fever, chills, cough, wheezing, or palpitations. Physical Exam Vital Signs Vitals BP 133/94 P 82 TEMP 98.3 SP02 94% on RA RESP 18 Physical Patient resting comfortably in chair in no acute distress, alert and oriented, responding appropriately throughout visit Full cervical extension range of motion without pain TMD 3.5 finger breadths Mallampati Score 2 Dentition: several crowns, denies chipped or loose teeth, caps, implants or bridges Lungs: normal respiratory effort. Good air movement, clear throughout to auscultation, no adventitious breath sounds Cardiac: regular rate and rhythm, no murmurs noted Carotid arteries: negative bruit bilat Lab Results Anesthesia Preop Results Results Anesthesia Widget: WBC 4.91 K/ul (4.8-10.8) 11/22/24 Hgb 13.7 g/dl (12.0-16.0) 11/22/24 Hct 40.3 % (37.0-47.0) 11/22/24 Plt 243 K/uL (130-400) 11/22/24 Na 138 mmol/L (136-145) 11/22/24 K 4.7 mmol/L (3.5-5.1) 11/22/24 Cl 104 mmol/L (98-107) 11/22/24 CO2 28 mmol/L (21-32) 11/22/24 BUN 18 mg/dl (6-23) 11/22/24 Creat 0.71 mg/dl (0.6-1.2) 11/22/24 Glucose Level 100 mg/dl (70-99(Fasting)) H 11/22/24 PT 11.2 Seconds (9.0-12.0) 11/22/24 PTT 29 Seconds (21-31) 11/22/24 INR 1.0 (0.9-1.1) 11/22/24 Blood Type A Positive 11/22/24 Antibody Screen NEGATIVE 11/22/24 Testing Electrocardiogram Date: 11/22/24 NSR, rate 71 bpm Echocardiogram Date: 08/24/21 EF 65-70% Mildly dilated atria No LVH No regional wall motion abnormalities S/p posterior MV leaflet resection and MV repair with a 26 mm annuloplasty ring Mild mitral stenosis Mild tricuspid regurgitation
--- NOTE | 2024-11-23 08:46 | History & Physical Report ---
Date of Service November 23, 2024 Assessment & Plan (1) Osteoarthritis of right hip: Plan PRE-OP Diagnosis: Right hip osteoarthritis Planned Procedure: Right total hip arthroplasty Plan: Patient is scheduled to undergo this procedure at the [facility] with Dr. Vicente on November. Risks and complications of the procedure such as: Infection, bleeding, pain, scarring, nerve blood vessel damage, weakness, wound problems, stiffness, incomplete relief of symptoms, hardware failure, hardware loosening, wear, fracture, tendon or ligament injury, dislocation, leg length inequality, blood clots, Embolism, heart attack, stroke and were explained to the patient at her visit today. Informed consent to perform the procedure was obtained. Patient had her PAT appointment earlier this morning and while there she obtained CBC with differe ntial, complete metabolic panel, PT/INR, blood type and screen, urinalysis, urine culture and sensitivity, EKG, and a nasal culture for MRSA. 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 These appointments are upcoming. Patient states that she plans on doing outpatient physical therapy at [facility]. Patient has a walker, raised toilet seat, shower chair and a hip kit. During today's visit we reviewed the total hip packet as well as precautions. We discussed discharge planning from the hospital. We discussed lectures offered by [facility] in regards to joint replacement surgery via Zoom. I advised the patient that upon discharge from hospital we will prescribe a narcotic pain medication and anti-inflammatory. Patient will also resume her Eliquis for DVT prophylaxis. Patient will be scheduled for 2-week postoperative follow-up visit with myself on December 15. This chart was completed utilizing [employer] voice recognition software. Grammatical errors, random word insertions, pronoun errors, and in complete sentences are an occasional consequence of the system. Any questions or isaiah rns about the content, text, or information contained within the body of this dictation should be addressed directly to the physician for clarification. History of Present Illness Chief Complaint: Chief Complaint: Right hip pain Primary Care Provider: Carolyne Larsen MD History of Present Illness (including history relevant to procedure): This 69-year-old female presents to the clinic today for preoperative history and physical. Patient had her left hip replacement Dr. Vicente at the end of November 2021. She states her left is doing great. She states that over the past several months she is developed pain in her right groin especially when she is on her feet for long periods of time. She feels her range of motion is also limited. She states that symptoms are very similar to those that she experienced before her left hip replacement. Patient is electing to proceed with surgical intervention at this time. Review Of Systems: A 12 point review of systems is performed and is unremarkable except for those things stated in the HPI and past medical history. Past Medical History: Problems: Cough Post-nasal drip Left thigh pain Dyspareunia, female History of vertebral compression fracture Encounter for gynecological examination Tricuspid regurgitation Right knee pain Left wrist pain Radial head fracture Fracture Arthritis CVA (cerebrovascular accident) S/p mitral valve repair Vitamin D deficiency Severe mitral regurgitation Heart murmur, systolic Bunion of right foot Hypertension Weight disorder Uveitis Tobacco abuse Melanocytic nevus of trunk Senile hyperkeratosis Procedure History Procedure Procedure Date Comments Fracture of wrist - repair - 12 yrs ago Fracture - has had multiple fracture - use to ride horse - Clavicle, Ankle, right arm, left foot, vertebral, tail bone - No surgical intervention. PAP test date - wnl Mammogram 10/08/2024 - Repeat in 1 yr Mammogram 10/06/2023 - IMPRESSION: ACR BI-RADS CATEGORY 2: BENIGNThere is no mammographic evidence of malignancy. A 1 year screening mammogram is recommended Chest X-ray 02/09/2023 - Impression:1. Cardiomegaly without acute process. 2. Ill-defined 1.4 cm opacity projects over the right upper lung. This may be secondary to summation density however attention at follow-up recommended in order to exclude a pulmonary nodule.3. Subtle cortiacl irregularity of the lateral right sixth rib. Correlate with point tenderness. 4. No pneumothorax. Plain X-ray of right wrist 02/09/2023 - IMPRESSION: 1. Limited exam secondary to positioning.2. Intact ORIF hardware of the distal radius.3. Mild cortical irregularity of the distal radial cortex suggestive of a subtle acute nondisplaced intra-articular fracture. CT of pelvis without contrast 02/09/2023 - IMPRESSION: 1. Moderate to severe osteoarthritis of the right hip without acute fracture or dislocation identified.2. Confirmation of the right-sided pelvic ring fractures with surrounding posttraumatic hemorrhage extending into the right inferior pelvis and adjacent adductor musculature.3. Small contusion within the subcutaneous tissues lateral to the right hip.4. Unremarkable appearance of the left hip total joint arthroplasty. CT brain without contrast 02/09/2023 - Impression: No acute intracrainal abnormality or calvarial fracture. X-ray tomography of pelvis and right hip 02/09/2023 - Impression:1. No acute fracture or dislocation identified within the right hip.2. Acute mildly displaced right superior pubic ramus fracture with equivocal acute nondisplaced inferior pubic ramus fracture.3. Moderate osteoarthritis of the right hip.4. Left hip arthroplasty. Mammogram 09/17/2022 - Impression ACR BI RADS CATEGORY 2: BENIGN X-ray of right knee 05/25/2021 - Impression: Dengenerative change as above with no acute bony abnormality identified. X-ray of ribs min 2V w CXR1V 04/24/2021 - Impression: 1. No acute cardiopulmonary abnormality. 2. No acute rib fracture identified. Skeletal X-ray of pelvis and hip 09/25/2020 - 1. No acute fracture or dislocation within the pelvis or hips.2. Mild right and moderate left hip osteoarthritis3. Chronic thickening of the bilateral femoral necks, unchanged. Screening mammogram of bilateral breasts 09/24/2019 - There is no mammographic evidence of malignancy. A 1 year screening mammogram is recommended. Elbow X-ray 01/04/2019 - Radial head fracture- right sided. Papanicolaou smear taken 08/25/2018 - Negative for intraepithelial lesion or malignancy. Atrophic pattern; predominantly parabasal cells. Mammogram 03/25/2018 - There is no mammographic evidence of malignancy. A one year screening is recommended. X-ray of left foot 11/27/2016 - 1. No acute fractures identified on conventional radiographic imaging2. Osteoarthritic changes at the level of the tarsometatarsal joints Brain MRA 10/09/2016 - No significant stenosis, occlusion, or aneurysm within the [place] MRA 10/09/2016 - 1. No significant stenosis, occlusion, or dissection identified within the common carotid, internal carotid or vertebral arteries2. Moderate to severe stenosis abdullahi the origin of the right external carotid artery MRI of the brain combo 09/27/2016 - 1. There is a small acute to subacute cortical infarct identified involving the left parietal cortex2. An additional punctate lacunar infarct is seen within the left parietal subcortical white matter3. There is no hemorrhage or mass effect. No enhancing mass is identified. 4. Paranasal sinus disease as above. MVR - Mitral valve repair 04/24/2016 Cardiac catheterization 02/20/2016 Transthoracic echocardiogram 01/05/2016 Bone density scan 08/24/2015 - AP spine- L3-L4- Tscore -1.7Femur- Neck left- Tscore -0.9Femur- neck right- tscore- -1.7Femur- total mean- tscore -1.1 PAP test date 05/19/2015 - Negative for intraepithelial lesion or Malignancy. Mammogram 05/04/2013 - No mammographic evidence for malignancy. 1 yr screening is recommended Swab of endocervix 09/20/2011 - Negative for intraepithelial lesion or malignancy Colonoscopy 09/16/2007 - The colon is normalTerminal ileum is normalRepeat colonoscopy in 5 yrs Allergies and Sensitivities: Allergy Not found in Search Current Home Meds: (Last Updated 11/22 16:03) acetaminophen (Tylenol Extra Strength) amoxicillin (amoxicillin 500 mg oral capsule) 2,000 mg PO As indicated one hour before dental and other procedures as directed apixaban (apixaban 5 mg oral tablet) 5 mg PO bid aspirin (aspirin 81 mg oral delayed release tablet) 81 mg PO Daily cephalexin (cephalexin 500 mg oral capsule) 500 mg PO tid cyclobenzaprine (cyclobenzaprine 10 mg oral tablet) TAKE 1 TABLET BY MOUTH TWICE DAILY NEEDED FOR MUSCLE SPASM docusate (Colace) metoprolol (Toprol-XL 50 mg oral tablet, extended release) 50 mg PO qhs Initial Wt: No Data Available Allergies Allergy/AdvReac Type Severity Reaction Status Date / Time salmon oil Allergy Severe Facial Verified 11/22/24 11:42 Swelling Home Medications Medication Instructions Recorded Confirmed Type apixaban 5 mg tablet (Eliquis) 5 mg PO BID 09/26/21 11/18/24 History aspirin 81 mg capsule 81 mg PO HS 09/26/21 11/18/24 History metoprolol succinate 50 mg 50 mg PO HS 09/26/21 11/18/24 History tablet,extended release 24 hr acetaminophen 500 mg tablet 1,000 mg PO TID PRN Pain 11/18/24 11/18/24 History (Tylenol Extra Strength) Past Med/Surg History Problem List (Updated 11/23/24 @ 08:45 by Raimundo Diana PA-C) Osteoarthritis of right hip Encounter for pre-operative examination Medical History History of stroke (~2015) 2016- 6 months after 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 Clark History of COVID-19 (~09/2021) 09/2021- severe cold symptoms, denies hospitalization-resolved PVCs (premature ventricular contractions) Asymptomatic Osteoarthritis Hypertension controlled, stable per pt; white coat HTN Surgical History History of left hip replacement Left ARMEN (12/13/2021): SAB at L4-5 (2 attempts) at [facility] History of cardiac cath Done prior to MV repair (2015)- no stents, "No CAD" History of colonoscopy History of tooth extraction H/O mitral valve repair 2015, [facility] [place] Nausea and vomiting after administration of anesthetic agent Family History Mother Hypertension Other No family history of adverse response to anesthesia Social History Smoking Status: Former smoker Second Hand Exposure: No; Do You Dip or Chew Tobacco: No; Hx Alcohol Use: Yes Alcohol type: wine Hx Substance Use: No Preferred Language: Wallisian Communication Ability: Effective C 40A Crew Chief Required: No Beliefs That Will Affect Care: None marital status: Current Living Situation: Spouse How many Children do You have: 1 Feels Safe at Home: Yes Assistive Devices: Contacts and Glasses Review of Systems All systems reviewed & are unremarkable except as noted in Subjective Physical Exam Physical Exam: Physical Exam: (relevant to the procedure, including heart and lung evaluation) General: Alert and oriented x 3 with proper grooming and hygiene Eyes: Pupils are equal and reactive to light with accommodation. Extraocular moods are intact Throat: Posterior oropharynx clear with absence of edema, erythema or exudate. Dentition is appropriate Cardiac: Grade 2/6 holosystolic murmur heard best over the left lower sternal border and apex. No gallops appreciated regular rate and rhythm. Lungs: Clear to auscultation throughout with no wheezing, rales or rhonchi Abdomen: Nonobese, nondistended, nontender with NABS Extremities: Right hip; flexion to 115 degrees with referred pain in the groin. External rotation to 35 degrees and internal rotation to 0 degrees. Straight leg raise test, Stinchfield test and logroll test are all positive. Scour and impingement tests are both positive. Patient is neurovascularly intact. Neuro: Cranial nerves II through XII are intact no motor or sensory deficit Skin: Normal in appearance no open skin areas or discharge Results & Data Diagnostic Findings Studies (relevant to the procedure): 3 views of the right hip obtainedon 07/30/24 which show moderately severe right hip arthritis near bone on bone in the false profile view
--- OUTSIDE RECORDS SUMMARY | 2024-12-02 05:27 | External Medical Summary | Continuity of Care Document ---
Author Name Unknown Organization [id number] Address [address] [place] [address] [id number] Care Team Providers Care Technical Adjuster Name Role Phone Carolyne Larsen Primary Care Physician [phone] Encounter [facility] [id number] Date(s): 11/22/24 - 11/22/24 [facility] [address] [place] [address] [id number] [facility] [address] [place] [id number] Encounter Diagnosis Preop examination(Discharge Diagnosis) - 11/22/24 Osteoarthritis of right hip(Discharge Diagnosis) - 11/22/24 Discharge Disposition: Home or Self Care Attending Physician: CARLYN Diana Dennis Referring Physician: MD Jules, Ramses Meehan Allergies, Adverse Reactions, Alerts No Known Medication Allergies Substance Criticality Severity Reaction Reaction Severity Status Allergy Not found in Search 1 Active 1salmon- face swelling Immunizations Given and Recorded Vaccine Date Status Refusal Reason influenza virus vaccine, inactivated 08/27/23 Give n influenza virus vaccine, inactivated 10/14/22 Give n influenza virus vaccine, inactivated 08/10/20 Aram rded influenza virus vaccine, inactivated 09/10/19 Give n influenza virus vaccine, inactivated 08/25/18 Give n influenza virus vaccine, inactivated 08/08/17 Give n pneumococcal 20-valent conjugate vaccine 10/14/22 Given zoster vaccine live 08/11/17 Recorded tetanus/diphtheria/pertuss, acel (Tdap) 05/20/12 R ecorded Medications amoxicillin 500 mg oral capsule Start: 04/01/24 12:14:00 PM EDT, 4 cap, PO, As indicated, Disp# 12 cap, Refills: 3, one hour before dental and other procedures as directed, Pharmacy: [facility] 1640 Start Date: 04/01/24 Status: Ordered apixaban 5 mg oral tablet Start: 09/28/24 10:41:00 AM EST, 1 tab, PO, bid, Disp# 60 tab, Refills: 11, Pharmacy: [facility] Start Date: 09/28/24 Status: Ordered aspirin 81 mg oral delayed release tablet Start: 11/04/16 1:30:00 PM EST, 1 tab, PO, Daily Start Date: 11/04/16 Status: Ordered cephalexin 500 mg oral capsule Start: 11/09/24 4:47:00 PM EST, 1 cap, PO, tid, Disp# 21 cap, Pharmacy: [facility] 1640 Start Date: 11/09/24 Stop Date: 11/16/24 Status: Ordered Colace Start: 09/20/21 2:40:00 PM EST Start Date: 09/20/21 Status: Ordered cyclobenzaprine 10 mg oral tablet Start: 03/14/23 10:20:00 AM EDT, See Instructions, Disp# 15 tab, Refills: 0, TAKE 1 TABLET BY MOUTH TWICE DAILY NEEDED FOR MUSCLE SPASM, Pharmacy: [facility] 1639 Start Date: 03/14/23 Status: Ordered Toprol-XL 50 mg oral tablet, extended release Start: 09/28/24 10:41:00 AM EST, 1 tab, PO, qhs, Disp# 30 tab, Refills: 11, Pharmacy: [facility] 1639 Start Date: 09/28/24 Status: Ordered Tylenol Extra Strength Start: 02/26/23 9:25:00 AM EDT Start Date: 02/26/23 Status: Ordered Mental Status 11/22/24 Barriers to Learning one year None evide nt Mandatory Health Literacy Documentation Yes Health Literacy Communication Barriers N ever Primary Language Israeli Problem List Condition Confirmation Course Effective Dates Status H ealth Status Informant Arthritis Confirmed Active Bunion of right foot Confirmed Active Cough Confirmed Active CVA (cerebrovascular accident) Confirmed Active Fracture 1 Confirmed Active Radial head fracture Confirmed Active History of vertebral compression fracture Confirmed Active S/p mitral valve repair Confirmed Active Hypertension Confirmed Active Melanocytic nevus of trunk Confirmed Active Severe mitral regurgitation Confirmed Active Dyspareunia, female Confirmed Active Left wrist pain Confirmed Active Right knee pain Confirmed Active Encounter for gynecological examination Confirmed Active Post-nasal drip Confirmed Active Senile hyperkeratosis Confirmed Active Heart murmur, systolic Confirmed Active Left thigh pain Confirmed Active Tobacco abuse Confirmed Active Tricuspid regurgitation Confirmed Active Uveitis Confirmed Active Vitamin D deficiency Confirmed Active Weight disorder Confirmed Active 1right elbow Diagnosis Diagnosis Type Effective Dates Health Status Clinical Service Informant Osteoarthritis of right hip Discharge Diagnosis 11/22/24 Preop examination Discharge Diagnosis 11/22/24 Procedures Procedure Date Related Diagnosis Body Site Status Mammogram 1 10/08/24 Completed Mammogram 2 10/06/23 Completed Chest X-ray 3 02/09/[address] brain without contrast 4 02/09/[address] of pelvis without contrast 5 02/09/23 Completed Plain X-ray of right wrist 6 02/09/23 Completed X-ray tomography of pelvis a nd right hip 7 02/09/23 Completed Mammogram 8 09/17/22 Completed X-ray of right knee 9 05/25/21 Com pleted X-ray of ribs min 2V w CXR1V 10 04/24/21 Completed Skeletal X-ray of pelvis and hip 11 09/25/20 Completed Screening mammogram of bilat eral breasts 12 09/24/19 Completed Elbow X-ray 13 01/04/19 Completed Papanicolaou smear taken 14 08/25/18 Completed Mammogram 15 03/25/18 Completed X-ray of left foot 16 11/27/16 Com pleted Brain MRA 17 10/09/16 Completed Neck MRA 18 10/09/16 Completed MRI of the brain combo 19 09/27/16 Completed MVR - Mitral valve repair 04/24/16 Completed Cardiac catheterization 02/20/16 C ompleted Transthoracic echocardiogram 01/05/16 Completed Bone density scan 20 08/24/15 Comp leted PAP test date 21 05/19/15 Complete d Mammogram 22 05/04/13 Completed Swab of endocervix 23 09/20/11 Com pleted Colonoscopy 24 09/16/07 Completed Fracture 25 Completed Fracture of wrist 26 Comp leted PAP test date 27 Complete d 1Repeat in 1 yr 2IMPRESSION: ACR BI-RADS CATEGORY 2: BENIGN There is no mammographic evidence of malignancy. A 1 year screening mammogram is recommended 3Impression: 1. Cardiomegaly without acute process. 2. Ill-defined 1.4 cm opacity projects over the right upper lung. This may be secondary to summation density however attention at follow-up recommended in order to exclude a pulmonary nodule. 3. Subtle cortiacl irregularity of the lateral right sixth rib. Correlate with point tenderness. 4. No pneumothorax. 4Impression: No acute intracrainal abnormality or calvarial fracture. 5IMPRESSION: 1. Moderate to severe osteoarthritis of the right hip without acute fracture or dislocation identified. 2. Confirmation of the right-sided pelvic ring fractures with surrounding posttraumatic hemorrhage extending into the right inferior pelvis and adjacent adductor musculature. 3. Small contusion within the subcutaneous tissues lateral to the right hip. 4. Unremarkable appearance of the left hip total joint arthroplasty. 6IMPRESSION: 1. Limited exam secondary to positioning. 2. Intact ORIF hardware of the distal radius. 3. Mild cortical irregularity of the distal radial cortex suggestive of a subtle acute nondisplacedintra-articular fracture. 7Impression: 1. No acute fracture or dislocation identified within the right hip. 2. Acute mildly displaced right superior pubic ramus fracture with equivocal acute nondisplaced inferior pubic ramus fracture. 3. Moderate osteoarthritis of the right hip. 4. Left hip arthroplasty. 8Impression ACR BI RADS CATEGORY 2: BENIGN 9Impression: Dengenerative change as above with no acute bony abnormality identified. 10Impression: 1. No acute cardiopulmonary abnormality. 2. No acute rib fracture identified. 111. No acute fracture or dislocation within the pelvis or hips. 2. Mild right and moderate left hip osteoarthritis 3. Chronic thickening of the bilateral femoral necks, unchanged. 12There is no mammographic evidence of malignancy. A 1 year screening mammogram is recommended. 13Radial head fracture- right sided. 14Negative for intraepithelial lesion or malignancy. Atrophic pattern; predominantly parabasal cells. 15There is no mammographic evidence of malignancy. A one year screening is recommended. 161. No acute fractures identified on conventional radiographic imaging 2. Osteoarthritic changes at the level of the tarsometatarsal joints 17No significant stenosis, occlusion, or aneurysm within the [place] 181. No significant stenosis, occlusion, or dissection identified within the common carotid, internalcarotid or vertebral arteries 2. Moderate to severe stenosis abdullahi the origin of the right external carotid artery 191. There is a small acute to subacute cortical infarct identified involving the left parietal cortex 2. An additional punctate lacunar infarct is seen within the left parietal subcortical white matter 3. There is no hemorrhage or mass effect. No enhancing mass is identified. 4. Paranasal sinus disease as above. 20AP spine- L3-L4- Tscore -1.7 Femur- Neck left- Tscore -0.9 Femur- neck right- tscore- -1.7 Femur- total mean- tscore -1.1 21Negative for intraepithelial lesion or Malignancy. 22No mammographic evidence for malignancy. 1 yr screening is recommended 23Negative for intraepithelial lesion or malignancy 24The colon is normal Terminal ileum is normal Repeat colonoscopy in 5 yrs 25has had multiple fracture - use to ride horse - Clavicle, Ankle, right arm, left foot, vertebral, tail bone - No surgical intervention. 26repair - 12 yrs ago 27wnl Vital Signs Most recent to oldest [Reference Range]: 1 Temperature [36.5-37.9 DegC] 36.4 DegC *LOW* (11/22/24 3:15 PM) Blood Pressure 120/76mmHg (11/22/24 3:15 PM) Social History Social History Type Response Tobacco 1 Smoking Status Never smoked cigaret shanel Sex Sex Representation Female (finding) 1off and on - half pk per day - total 20 yrs. Pre-OP H & P * CARLYN Diana, Raimundo: PERFORM Event Display: Pre-OP H & P Authored Date: [id number] PRE-OPERATIVE HISTORY AND PHYSICAL Name: SCHUYLER QUIROS Patient Number: [id number] : 1955 Date of Service: 11/22/2024 PRE-OP Diagnosis: Right hip osteoarthritis Planned Procedure: Right total hip arthroplasty Chief Complaint: Right hip pain History of Present Illness (including history relevant to procedure): This 69-year-old female presents to the clinic today for preoperative history and physical. Patient had her left hip replacement Dr. Vicente at the end of November 2021. She states her left is doing great. She states that overthe past several months she is developed pain in her right groin especially when she is on her feetfor long periods of time. She feels her range of motion is also limited. She states that symptoms are very similar to those that she experienced before her left hip replacement. Patient is electing to proceed with surgical intervention at this time. Review Of Systems: A 12 point review of systems is performed and is unremarkable except for those things stated in the HPI and past medical history. Past Medical History: Problems: Cough Post-nasal drip Left thigh pain Dyspareunia, female History of vertebral compression fracture Encounter for gynecological examination Tricuspid regurgitation Right knee pain Left wrist pain Radial head fracture Fracture Arthritis CVA (cerebrovascular accident) S/p mitral valve repair Vitamin D deficiency Severe mitral regurgitation Heart murmur, systolic Bunion of right foot Hypertension Weight disorder Uveitis Tobacco abuse Melanocytic nevus of trunk Senile hyperkeratosis Procedure History Procedure Procedure Date Comments Fracture of wrist - repair - 12 yrs ago Fracture - has had multiple fracture - use to ride horse - Clavicle, Ankle, right arm, left foot, vertebral,tail bone - No surgical intervention. PAP test date - wnl Mammogram 10/08/2024 - Repeat in 1 yr Mammogram 10/06/2023 - IMPRESSION: ACR BI-RADS CATEGORY 2: BENIGNThere is no mammographic evidence of malignancy. A 1 year screening mammogram is recommended Chest X-ray 02/09/2023 - Impression:1. Cardiomegaly without acute process. 2. Ill-defined 1.4 cm opacity projects over theright upper lung. This may be secondary to summation density however attention at follow-up recommended in order to exclude a pulmonary nodule.3. Subtle cortiacl irregularity of the lateral right sixth rib. Correlate with point tenderness. 4. No pneumothorax. Plain X-ray of right wrist 02/09/2023 - IMPRESSION: 1. Limited exam secondary to positioning.2. Intact ORIF hardware of the distal radius.3. Mild cortical irregularity of the distal radial cortex suggestive of a subtle acute nondisplacedintra-articular fracture. CT of pelvis without contrast 02/09/2023 - IMPRESSION: 1. Moderate to severe osteoarthritis of the right hip without acute fracture or dislocation identified.2. Confirmation of the right-sided pelvic ring fractures with surrounding posttraumatic hemorrhage extending into the right inferior pelvis and adjacent adductor musculature.3. Smallcontusion within the subcutaneous tissues lateral to the right hip.4. Unremarkable appearance of the left hip total joint arthroplasty. CT brain without contrast 02/09/2023 - Impression: No acute intracrainal abnormality or calvarial fracture. X-ray tomography of pelvis and right hip 02/09/2023 - Impression:1. No acute fracture or dislocation identified within the right hip.2. Acute mildly displaced right superior pubic ramus fracture with equivocal acute nondisplaced inferior pubic ramus fracture.3. Moderate osteoarthritis of the right hip.4. Left hip arthroplasty. Mammogram 09/17/2022 - Impression ACR BI RADS CATEGORY 2: BENIGN X-ray of right knee 05/25/2021 - Impression: Dengenerative change as above with no acute bony abnormality identified. X-ray of ribs min 2V w CXR1V 04/24/2021 - Impression: 1. No acute cardiopulmonary abnormality. 2. No acute rib fracture identified. Skeletal X-ray of pelvis and hip 09/25/2020 - 1. No acute fracture or dislocation within the pelvis or hips.2. Mild right and moderate left hiposteoarthritis3. Chronic thickening of the bilateral femoral necks, unchanged. Screening mammogram of bilateral breasts 09/24/2019 - There is no mammographic evidence of malignancy. A 1 year screening mammogram is recommended. Elbow X-ray 01/04/2019 - Radial head fracture- right sided. Papanicolaou smear taken 08/25/2018 - Negative for intraepithelial lesion or malignancy. Atrophic pattern; predominantly parabasal cells. Mammogram 03/25/2018 - There is no mammographic evidence of malignancy. A one year screening is recommended. X-ray of left foot 11/27/2016 - 1. No acute fractures identified on conventional radiographic imaging2. Osteoarthritic changes atthe level of the tarsometatarsal joints Brain MRA 10/09/2016 - No significant stenosis, occlusion, or aneurysm within the [place] Neck MRA 10/09/2016 - 1. No significant stenosis, occlusion, or dissection identified within the common carotid, internal carotid or vertebral arteries2. Moderate to severe stenosis abdullahi the origin of the right external carotid artery MRI of the brain combo 09/27/2016 - 1. There is a small acute to subacute cortical infarct identified involving the left parietal cortex2. An additional punctate lacunar infarct is seen within the left parietal subcortical white matter3. There is no hemorrhage or mass effect. No enhancing mass is identified. 4. Paranasal sinus disease as above. MVR - Mitral valve repair 04/24/2016 Cardiac catheterization 02/20/2016 Transthoracic echocardiogram 01/05/2016 Bone density scan 08/24/2015 - AP spine- L3-L4- Tscore -1.7Femur- Neck left- Tscore -0.9Femur- neck right- tscore- -1.7Femur- total mean- tscore -1.1 PAP test date 05/19/2015 - Negative for intraepithelial lesion or Malignancy. Mammogram 05/04/2013 - No mammographic evidence for malignancy. 1 yr screening is recommended Swab of endocervix 09/20/2011 - Negative for intraepithelial lesion or malignancy Colonoscopy 09/16/2007 - The colon is normalTerminal ileum is normalRepeat colonoscopy in 5 yrs Allergies and Sensitivities: Allergy Not found in Search Current Home Meds: (Last Updated 11/22 16:03) acetaminophen (Tylenol Extra Strength) amoxicillin (amoxicillin 500 mg oral capsule) 2,000 mg PO As indicated one hour before dental and other procedures as directed apixaban (apixaban 5 mg oral tablet) 5 mg PO bid aspirin (aspirin 81 mg oral delayed release tablet) 81 mg PO Daily cephalexin (cephalexin 500 mg oral capsule) 500 mg PO tid cyclobenzaprine (cyclobenzaprine 10 mg oral tablet) TAKE 1 TABLET BY MOUTH TWICE DAILY NEEDED FOR MUSCLE SPASM docusate (Colace) metoprolol (Toprol-XL 50 mg oral tablet, extended release) 50 mg PO qhs Vitals: Last Updated 11/22/24 15:15 Weights: No Weight Data Available Date Temp Pulse BP RR SpO2 FIO2 Date Wt(kg) Wt(lb) 11/22 15:15 36.4 120/76 96 24 Hr Tmax: 36.4 at 11/22 15:15 Initial Wt: No Data Available Physical Exam: (relevant to the procedure, including heart and lung evaluation) General: Alert and oriented x 3 with proper grooming and hygiene Eyes: Pupils are equal and reactive to light with accommodation. Extraocular moods are intact Throat: Posterior oropharynx clear with absence of edema, erythema or exudate. Dentition is appropriate Cardiac: Grade 2/6 holosystolic murmur heard best over the left lower sternal border and apex. No gallops appreciated regular rate and rhythm. Lungs: Clear to auscultation throughout with no wheezing, rales or rhonchi Abdomen: Nonobese, nondistended, nontender with NABS Extremities: Right hip; flexion to 115 degrees with referred pain in the groin. External rotation to 35 degrees and internal rotation to 0 degrees. Straight leg raise test, Stinchfield test and logroll test are all positive. Scour and impingement tests are both positive. Patient is neurovascularly intact. Neuro: Cranial nerves II through XII are intact no motor or sensory deficit Skin: Normal in appearance no open skin areas or discharge Studies (relevant to the procedure): 3 views of the right hip obtainedon 07/30/24 which show moderately severe right hip arthritis near bone on bone in the false profile view Plan: Patient is scheduled to undergo this procedure at the [facility] with Dr. Vicente on November. Risks and complications of the procedure such as: Infection, bleeding, pain, scarring, nerve blood vessel damage, weakness, wound problems, stiffness, incomplete relief of symptoms, hardware failure, hardware loosening, wear, fracture, tendon or ligament injury, dislocation, leg length inequality, blood clots, Embolism, heart attack, stroke and were explained to the patient at her visit today. Informed consent to perform the procedure was obtained.Patient had her PAT appointment earlier this morning and while there she obtained CBC with different ial, complete metabolic panel, PT/INR, blood type and screen, urinalysis, urine culture and sensitivity, EKG, and a nasal culture for MRSA. 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 These appointments are upcoming. Patient states that she plans on doing outpatient physical therapy at [facility]. Patient has a walker, raised toilet seat, shower chair and a hip kit. During today's visit we reviewed the total hip packet as well as precautions. We discussed discharge planning from the hospital. We discussed lectures offered by [facility] in regards to joint replacement surgery via Zoom. I advised the patient that upon discharge from hospital we will prescribe a narcotic pain medication and anti- inflammatory. Patient will also resume her Eliquis for DVT prophylaxis. Patient will be scheduled for 2-week postoperative follow-up visit with myself on December 15. This chart was completed utilizing [employer] voice recognition software. Grammatical errors,random word insertions, pronoun errors, and in complete sentences are an occasional consequence of the system. Any questions or concerns about the content, text, or information contained within the body of this dictation should be addressed directly to the physician for clarification. Electronic Signature on File CC: Carolyne Larsen MD [id number] [id number] Electronically Reviewed/Signed by: Raimundo Diana PA-C Author Signature Dt/Tm:11/22/2024 04:39 PM Division of Sports Medicine Electronically Reviewed/Signed by: MD Alan Ramirez Signature Dt/Tm: 11/23/2024 12:48PM Division of Sports Medicine DC Patient Care team information Care Team Personnel Name: MD Larsen Madhavi Position: Physician - Family Med Member Role: Primary Care Provider Address: [address] [place] [address] [place] Care Team Related Persons Name: LEDA QUIROS Name: LEDA QUIROS Name: JAIME QUIROS Name: JAIME QUIROS Name: MICHELLE QUIROS
[2024-12-02] MEDS: LR 500ML BOLUS, THEN 15ML/HR IV SCH (06:00)
[2024-12-02] MEDS: ACETAMINOPHEN 500 MG TAB PO SCH ×2 (06:01→12:58)
[2024-12-02] MEDS: CeleBREX 200 MG CAP PO SCH (06:01)
[2024-12-02] MEDS: LR 60ML/HR IV SCH (06:01)
[2024-12-02] MEDS: dexAMETHasone**PF** 10 MG/ML VIAL IV SCH (06:01)
[2024-12-02] MEDS: FAMOTIDINE 20 MG TAB PO SCH (06:03)
[2024-12-02] MEDS: traMADol HCL 50 MG TABLET PO SCH (06:04)
[2024-12-02] MEDS: Scopolamine 1 MG TDSY TD SCH (06:04)
[2024-12-02] MEDS ORDERED: BUPIVACAINE 0.5 % 5 MG/1 ML PF 10ML VIAL ONE (06:27)
[2024-12-02] MEDS ORDERED: ePHEDrine sulfate 50 MG/ML AMP IV PRN (06:32)
[2024-12-02] MEDS ORDERED: ATROPINE SULFATE 0.1 MG/ML 10ML SYR IV PRN (06:32)
[2024-12-02] MEDS ORDERED: fentaNYL citrate PF 100 MCG/2 ML VIAL IV PRN (06:32)
[2024-12-02] MEDS ORDERED: MIDAZOLAM HCL 1 MG/ML 2ML VIAL ONE (06:41)
--- NOTE | 2024-12-02 06:42 | History & Physical Bridge Note ---
Date of Service December 02, 2024 History & Physical Bridge Note I have examined the patient, reviewed the History & Physical and in the interval since the performance of the History & Physical I have noted the following changes of clinical significance: no changes noted
[2024-12-02] MEDS ORDERED: PROPOFOL IV EMULSION 10 MG/ML 20 ML VIAL IV ONE ×2 (06:47→06:51)
[2024-12-02] MEDS: TRANEXAMIC ACID 1,000 MG **IV Pre-op IV SCH (06:52)
[2024-12-02] MEDS: ceFAZolin 2000MG 2,000 MG/15 ML SYR IV SCH ×2 (07:06→14:18)
[2024-12-02] MEDS ORDERED: PHENYLEPHRINE HCL 10 MG/ML VIAL ONE (07:41)
[2024-12-02] MEDS: ROPIVACAINE 0.5% HCL/PF 246 MG, Ketorolac (*for OR use only*) 30 MG, EPINEPHrine 30MG/3... INFIL SCH (08:05)
[2024-12-02] MEDS: TRANEXAMIC ACID 1,000 MG **IV Intra-op IV SCH (08:07)
--- NOTE | 2024-12-02 08:50 | Operative Report ---
Post Operative Report Pre & Post Diagnosis Operation Date: 12/02/24 07:00 Pre-Op Diagnosis: Osteoarthritis Hip Right Post-Op Diagnosis: Osteoarthritis Hip Right I identified the patient and participated in the time-out.: Yes Procedure Operation Date: 12/02/24 07:00 Actual Procedures p Right Total Hip Arthroplasty(Right) - Ramses Vicente MD Surgeon Ramses Vicente MD Bobbin Winder Tender RENALDO Diana PA-C. No resident or fellow was available to assist Estimated Blood Loss 100 Findings Consistent with Post-Op Diagnosis Specimens Right femoral head Anesthesia Type Spinal MAC Complications none Disposition Disposition: Recovery Room Indications 69-year-old female, with right hip osteoarthritis refractory to conservative management. She previously undergone a left total hip arthroplasty by myself in the past with a good result. She desires to have the same operation performed on her right hip. I do long discussion with her about the risks and benefits of surgery, alternatives to surgery, and expected outcomes. After reviewing all these she elected to proceed with surgery. All questions were answered. Informed consent was signed. Description of Procedure Patient was identified in the preoperative holding area where the surgical site, right hip, was marked. A spinal anesthetic was placed, then the patient was brought back to the main operating room, placed in the operating table and moved into the lateral decubitus position. Axillary roll was placed. All bony prominences were padded. Perioperative antibiotics and tranexamic acid 1 gram IV were administered. The operative extremity was prepped and draped in the normal sterile fashion. Prior to incision a multidisciplinary timeout was called. All in the room were in agreement. We began by making an incision for a posterior approach to the hip. We dissected down through subcutaneous tissues to the level of the fascia. The fascia was incised in line with the incision. Charnley bow was placed. Fatty tissue was reflected posteriorly off the back of the greater trochanter to expose the piriformis and short external rotators of the hip. Quadratus femoris was taken off the femur subperiosteally. The piriformis and short external rotators were dissected off the posterior aspect of the hip. A box cut was made in the capsule. Inferior hip capsule was released off the femur. The femoral head was dislocated. The femoral neck cut was made at our preoperative template. The acetabulum was then exposed. The labrum was sharply excised. Contents of the cotyloid fossa were removed with electrocautery. We then began reaming at a size 8 mm less than our preoperative template. We reamed up by 1 [address] the way up to a size 52 mm cup. This gave us good bleeding cancellus bone circumferentially. The acetabulum was then irrigated out and dried. The real [place] Gription cup was then impacted down into position with 40 degrees of lateral opening and 25 degrees of anteversion. A single cancellous bone screw was placed up into the ilium. Excellent fixation was obtained. A trial liner for a 32 mm femoral head was then placed. Next we turned our attention to the femur. The lateral neck was removed with a box osteotome. Intramedullary guide was used to establish the intramedullary canal. We then broached all the way up to a size 5. We began trialing with a high offset neck and a +5 head. Hip was reduced. Her right leg was a little shorter than the left before surgery, however, now leg lengths were symmetric. The hip was stable in extension and external rotation, and stable in the sleeper position. At 90 degrees of hip flexion the hip could be internally rotated 75 degrees before levering out of the cup. I was very happy with the stability exam. Therefore the hip was dislocated and the femoral trial was removed. The acetabulum was re-exposed, and the trial liner was removed. [place] hole eliminator screw was placed. An Altrx polyethylene liner for a 32 mm femoral head was then impacted into the shell. The locking mechanism was checked to ensure that it had engaged which it had. The femur was re-exposed. The femoral canal was irrigated and dried. The real Actis femoral stem was opened up. This was impacted down into position. The femoral head was opened up and gently impacted down onto the trunnion. The hip was atraumatically reduced. Another 1 gram of IV tranexamic acid was started prior to closure. The wound was irrigated out with sterile Betadine solution. The periarticular injection cocktail was then placed. The short external rotators, piriformis, and posterior capsule were repaired through drill holes in the greater trochanter using #2 Vicryl. The fascia was run with a looped #1 PDS. The subcutaneous layer was closed with #1 PDS. The dermal layer was closed with 2-0 Vicryl. Zip line was used for the skin followed by a Silverlon dressing. A compressive dressing was then placed. The patient was then rolled supine. Leg lengths were rechecked and were symmetric. An abduction pillow was placed. Sedation was lifted and the patient was transferred to the recovery room in stable condition. Summary of implants: Depuy [place] Gription Acetabular Shell Sector Cup, 52 mm outer diameter [place] Cancellous bone screw, 6.5 x 40 mm [place] hole eliminator [place] Altrx Polyethylene Acetabular Liner, Neutral, with a 32 mm inner diameter DePuy Actis collared cementless Femoral stem, 12/14 taper, size 5 high offset 32 mm ceramic femoral head with +5 offset Postoperative course: Patient will be admitted overnight from the recovery room. Patient will be weightbearing as tolerated with posterior hip precautions. Resume Eliquis for DVT prophylaxis I attest to the content of the Intraoperative Record and any orders documented therein. Any exceptions are noted below.
--- NOTE | 2024-12-02 08:50 | Operative Report ---
Post Operative Report Pre & Post Diagnosis Operation Date: 12/02/24 07:00 Pre-Op Diagnosis: Osteoarthritis Hip Right Post-Op Diagnosis: Osteoarthritis Hip Right I identified the patient and participated in the time-out.: Yes Procedure Operation Date: 12/02/24 07:00 Actual Procedures p Right Total Hip Arthroplasty(Right) - Ramses Vicente MD Surgeon Ramses Vicente MD Mattress Inspector Xavi Diana PA-Edyta Estimated Blood Loss 100 Findings Consistent with Post-Op Diagnosis Specimens femoral head Description of Procedure I was present during the entire case assisting with positioning, prepping, draping, wound retraction, wound closure, dressing and abduction pillow placement. No fellow present. Please see Dr. Vicente procedure note for specifics of the case. I attest to the content of the Intraoperative Record and any orders documented therein. Any exceptions are noted below.
[2024-12-02] MEDS ORDERED: METOCLOPRAMIDE HCL INJ 5 MG/ML 2 ML VIAL IV PRN (08:52)
[2024-12-02] MEDS ORDERED: NALOXONE HCL 0.4 MG/1 ML VIAL/CARP IV PRN (08:52)
[2024-12-02] MEDS ORDERED: HYDROmorphone INJ 0.5 MG/0.5 ML SYR IV PRN (08:52)
[2024-12-02] MEDS ORDERED: diphenhydrAMINE 50 MG/ML VIAL IV PRN (08:52)
[2024-12-02] MEDS ORDERED: oxyCODONE HCL IR 5 MG TAB (IMMEDIATE RELEASE) PO PRN (08:52)
[2024-12-02] MEDS ORDERED: MAGNESIUM HYDROXIDE SUSP 30 ML UDC PO PRN (08:52)
[2024-12-02] MEDS ORDERED: bisacodyL 10 MG SUPP PR PRN (08:52)
[2024-12-02] MEDS ORDERED: ALUMINUM/MAGNESIUM SUSP 30 ML UDC PO PRN (08:52)
[2024-12-02] MEDS ORDERED: ACETAMINOPHEN 500 MG TAB PO PRN (08:55)
--- NOTE | 2024-12-02 10:06 | Anesthesiology Progress Note ---
Date of Service December 02, 2024 Anesthesia Post Procedure Vital Signs Vital Signs: Temp Pulse Pulse Resp BP Pulse Ox O2 Del Method 12/02/24 09:55 36.3 C L 73 18 106/67 97 Room Air 12/02/24 09:35 36.4 C L 73 15 100/56 L 96 Room Air 12/02/24 09:25 71 15 95/63 L 100 Room Air 12/02/24 09:15 69 16 101/60 100 Room Air 12/02/24 09:05 74 14 93/60 L 99 Oxymask 12/02/24 08:55 74 18 96/52 L 96 Oxymask 12/02/24 08:49 36.2 C L 74 24 104/60 93 Oxymask 12/02/24 05:44 36.9 C 86 20 138/84 98 Room Air O2 Flow Rate 12/02/24 09:55 12/02/24 09:35 12/02/24 09:25 12/02/24 09:15 12/02/24 09:05 4 12/02/24 08:55 4 12/02/24 08:49 4 12/02/24 05:44 Notes Mental Status: alert / awake / arousable Patient Amnestic to Procedure: Yes Nausea / Vomiting: adequately controlled Pain: adequately controlled Airway Patency, RR, SpO2: stable & adequate BP & HR: stable & adequate Hydration State: stable & adequate Neuraxial Anesthesia: was administered and sensory block is resolving Anesthetic Complications: no major complications apparent
[2024-12-02] MEDS: ORTHO JOINT ANESTHETIC ONE (10:07)
[2024-12-02] MEDS: ONDANSETRON INJ 2 MG/ML 2 ML VIAL IV PRN ×2 (10:11→10:12)
--- NOTE | 2024-12-02 10:12 | XRay Report ---
XR pelvis 1-2V routine HISTORY: 69 years-old Female In PACU - Post Surgical COMPARISON: 11/22/2024 TECHNIQUE: AP view of the pelvis FINDINGS: Bilateral hip arthroplasties. Expected postoperative soft tissue swelling and deep tissue air surroun ding the right hip arthroplasty. No acute fracture or an expected opaque foreign body. IMPRESSION: Right hip arthroplasty with expected postoperative changes. ACT 112: Negative or not required by law. The above report was generated using voice recognition software. It may contain grammatical, syntax o r spelling errors. Electronically signed by: Fabrice Dobbs M.D. 12/02/2024 10:11 AM
[2024-12-02] MEDS: MULTIVITAMIN TAB PO SCH (10:52)
[2024-12-02] MEDS: KETOROLAC TROMETHAMINE 15 MG/ML VIAL IV SCH (10:53)
[2024-12-02] MEDS: DOCUSATE SODIUM 100 MG CAP PO SCH (10:53)
[2024-12-02] MEDS ORDERED: traMADol HCL 50 MG TABLET PO PRN (13:05)
[2024-12-02] MEDS: LACTATED RINGER'S 500 ML IV ONE ×2 (13:43→18:10)
[2024-12-02] MEDS: Scopolamine CHECK PATCH PLACEMENT SCH (14:18)
[2024-12-02] MEDS: METOPROLOL SUCC 50MG EXT REL TAB PO SCH (18:09)
--- NOTE | 2024-12-02 18:25 | Hospitalist Consultation ---
Date of Consultation December 02, 2024 Assessment & Plan (1) S/P hip replacement: (2) Postoperative hypotension: Plan Carole is a 69F w/ PMH of heart valve repair ([facility] [place] 2015), post-op CVA ([facility] [place] 2015), and hypertension who presented for right hip arthroplasty which was performed 12/02/24. Hospitalist service consulted for evaluation and management of post- operative hypotension. S/p R Hip Replacement POD#0 Post-Op Hypotension - Surgical replacement w/o complication, EBL 100 - No evidence of sanguinous drainage from the surgical site or ecchymosis - Eliquis and Aspirin not yet restarted - Likely multifactorial: post-anesthesia, poor PO intake, intravascular depletion, pain - CBC and BMP ordered, pending result - BP Improved S/p 1L bolus of LR, ongoing @ 80 mL/hr - Maintain MAP > 65 - Additional post-op care and pain management per Orthopedics Update 1847 12/02- patient developed tachycardia w/ O2 saturation of 92%, no active chest pain or dyspnea, no calf pain noted. Given patient's recent surgery and history of CVA following valve repair in 2015, compounded with her not being on her baseline Eliquis since Friday, will maintain a low threshold for CT PE Protocol if symptoms persist. D-dimer not clinically useful at this time given recent surgery. Chronic Conditions - HTN - Hold Metoprolol for hypotension, can restart 12/03 if BP stabilized - S/p CVA - Eliquis/Aspirin held until tomorrow Code: Full FENGI: Heart Healthy, Regular IVF: S/p 1L LR, LR @ 80 for mIVF Dispo: Per Ortho Supervising Physician Co-Signing Physician Notes Patient seen and examined, chart reviewed, case discussed with Dr. Bazan and I agree with the assessment and plan as above except as otherwise noted above. At bedside nondistressed, and feels greatly improved after 500cc of fluid. Lungs CTAB. VSS and normalized. No hypoxia. Agree with above. History of Present Illness Attending Physician: Ramses Vicente MD History of Present Illness Carole is a 69F w/ PMH of heart valve repair ([facility] [place] 2015), post-op CVA ([facility] [place] 2015), and hypertension who presented for right hip arthroplasty which was performed 12/02/24. Hospitalist service consulted for evaluation and management of post- operative hypotension. Patient notes an episode of lightheadedness that was provoked by ambulating to the bathroom this afternoon. Symptoms were accompanied by nausea and emesis. She recalls significant numbness ongoing in her right leg s/p nerve block. She believes that she was very hungry, because after the episode of emesis she ate her full dinner and felt much better. She denies any pain at the surgical site. She is not experiencing headaches, ongoing lightheadedness, abdominal pain, nausea or emesis. She is urinating well, but has not yet moved bowels. Patient denies chest pain or dyspnea. Patient notes that she remains on Eliquis and Aspirin post valve repair/stroke which resulted in numbness of her left lateral hand. She has not taken Eliquis since Friday or Aspirin since last night. Outpatient she is on Metoprolol for Hypertension. She has no history of abnormal glucose levels. She does have a PRN muscle relaxant at home for back spasms. She notes that her BP is usually higher (120+/80+) even though she is on BP medication. Allergies Allergy/AdvReac Type Severity Reaction Status Date / Time salmon oil Allergy Severe Facial Verified 12/02/24 05:41 Swelling Home Medications Medication Instructions Recorded Confirmed Type apixaban 5 mg tablet (Eliquis) 5 mg PO BID 09/26/21 12/02/24 History aspirin 81 mg capsule 81 mg PO HS 09/26/21 12/02/24 History metoprolol succinate 50 mg 50 mg PO HS 09/26/21 12/02/24 History tablet,extended release 24 hr acetaminophen 500 mg tablet 1,000 mg PO TID PRN Pain 11/18/24 12/02/24 History (Tylenol Extra Strength) Patient History Medical History History of stroke (~2015) 2016- 6 months after 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 Clark History of COVID-19 (~09/2021) 09/2021- severe cold symptoms, denies hospitalization-resolved PVCs (premature ventricular contractions) Asymptomatic Osteoarthritis Hypertension controlled, stable per pt; white coat HTN Surgical History History of left hip replacement Left ARMEN (12/13/2021): SAB at L4-5 (2 attempts) at [facility] History of cardiac cath Done prior to MV repair (2015)- no stents, "No CAD" History of colonoscopy History of tooth extraction H/O mitral valve repair 2016, [facility] [place] Nausea and vomiting after administration of anesthetic agent Family History Mother Hypertension Other No family history of adverse response to anesthesia Social History Smoking Status: Former smoker Smoking End Date: 2015; Second Hand Exposure: No; Do You Dip or Chew Tobacco: No; Tobacco Cessation Education Requested by Patient: No Hx Alcohol Use: Yes Alcohol type: wine Hx Substance Use: No Preferred Language: Honduran Communication Ability: Effective Director Microbiology Required: No Beliefs That Will Affect Care: None marital status: Current Living Situation: Spouse How many Children do You have: 1 Other Information That Helps Us Care for You: No Feels Safe at Home: Yes Safety Concerns: Feels Safe At This Time Assistive Devices: Contacts and Glasses Physical Exam Physical Exam: Gen: NAD, alert, interactive HEENT: Supple, no LAD, no thyromegaly, no JVD, MMM Resp:Non-labored, no wheezing/rhonchi/rales, CTAB CV:RRR, normal S1/S2, no M/R/G Abd: Soft, non-distended, no TTP, normoactive bowels, no masses Extr: 2+ dp bilaterally, no edema - R Hip with surgical bandage intact, no evidence of sanguinous drainage onto the bandage or ecchymosis at the surgical site, no surgical drains Neuro: AO x 4, CN II-XII grossly intact, reduced sensation to RLE Skin: No rashes lesions or erythema Results & Data Results & Data Vital Signs (Past 12 Hours) Vital Signs Temp Pulse Pulse Resp BP BP Pulse Ox 12/02/24 18:10 106/68 12/02/24 16:54 97/64 L 12/02/24 15:38 36.8 C 77 16 103/69 92 12/02/24 14:23 116/75 12/02/24 12:51 36.5 C 75 18 97/67 L 94 12/02/24 12:01 36.6 C 78 18 99/69 L 94 12/02/24 10:51 36.4 C L 69 16 94/63 L 95 12/02/24 10:26 69 18 104/71 94 12/02/24 09:55 36.3 C L 73 18 106/67 97 12/02/24 09:35 36.4 C L 73 15 100/56 L 96 12/02/24 09:25 71 15 95/63 L 100 12/02/24 09:15 69 16 101/60 100 12/02/24 09:05 74 14 93/60 L 99 12/02/24 08:55 74 18 96/52 L 96 12/02/24 08:49 36.2 C L 74 24 104/60 93 O2 Del Method O2 Flow Rate 12/02/24 18:10 12/02/24 16:54 12/02/24 15:38 Room Air 12/02/24 14:23 12/02/24 12:51 Room Air 12/02/24 12:01 Room Air 12/02/24 10:51 Room Air 12/02/24 10:26 Room Air 12/02/24 09:55 Room Air 12/02/24 09:35 Room Air 12/02/24 09:25 Room Air 12/02/24 09:15 Room Air 12/02/24 09:05 Oxymask 4 12/02/24 08:55 Oxymask 4 12/02/24 08:49 Oxymask 4 Resident Activity Tracking Resident Involvement: Resident Care Provided Care Provided: Adult Hospital Medicine
[2024-12-02 19:41] LABS: BUN Creatinine Ratio 20.3 (10-20); Calcium 8.4 mg/dl (8.6-10.3); Creatinine Clr Calc Pharmacy 67.5 ml/min; Potassium 4.6 mmol/L (3.5-5.1)
[2024-12-02 19:43] LABS: Hematocrit (blood only) 35.3 % (37.0-47.0); Hemoglobin 11.7 g/dl (12.0-16.0); Mean Corpuscular Hemoglobin 31.9 pg (25.0-34.0); Mean Corpuscular Hgb Conc 33.1 g/dL (32.0-36.0); Mean Corpuscular Volume 96.2 fL (80.0-100.0); Mean Platelet Volume 10.8 fL (9.4-12.4); Platelet Count 210 K/uL (130-400); RDW Coefficient of Variation 12.9 % (11.5-14.5); RDW Standard Deviation 45.3 fL (36.4-46.3); Red Blood Count 3.67 M/uL (4.20-5.40); White Blood Count 11.55 K/ul (4.8-10.8)
[2024-12-02 20:08] LABS: Basophils # (auto) 0.02 K/uL (0.00-0.20); Basophils % (auto) 0.2 %; Immature Granulocytes # (auto) 0.05 K/uL (0.01-0.20); Immature Granulocytes % (auto) 0.4 %; Lymphocytes # (auto) 0.46 K/uL (1.20-3.40); Monocytes # (auto) 0.58 K/uL (0.11-0.59); Neutrophils # (auto) 10.44 K/uL (1.40-6.50); Neutrophils % (auto) 90.4 %
[2024-12-02] MEDS: SENNA 8.6 MG TAB PO SCH (20:26)
[2024-12-02] MEDS ORDERED: ASPIRIN 81 MG ECTAB PO SCH (21:00)
[2024-12-03 07:00] LABS: Basophils # (auto) 0.03 K/uL (0.00-0.20); Basophils % (auto) 0.5 %; Eosinophils # (auto) 0.03 K/uL (0.00-0.50); Eosinophils % (auto) 0.5 %; Hematocrit (blood only) 31.1 % (37.0-47.0); Hemoglobin 10.5 g/dl (12.0-16.0); Immature Granulocytes # (auto) 0.02 K/uL (0.01-0.20); Immature Granulocytes % (auto) 0.3 %; Lymphocytes # (auto) 0.95 K/uL (1.20-3.40); Lymphocytes % (auto) 15.1 %; Mean Corpuscular Hemoglobin 32.7 pg (25.0-34.0); Mean Corpuscular Hgb Conc 33.8 g/dL (32.0-36.0); Mean Corpuscular Volume 96.9 fL (80.0-100.0); Mean Platelet Volume 10.8 fL (9.4-12.4); Monocytes # (auto) 0.77 K/uL (0.11-0.59); Monocytes % (auto) 12.2 %; Neutrophils # (auto) 4.51 K/uL (1.40-6.50); Neutrophils % (auto) 71.4 %; Platelet Count 174 K/uL (130-400); RDW Standard Deviation 46.1 fL (36.4-46.3); Red Blood Count 3.21 M/uL (4.20-5.40); White Blood Count 6.31 K/ul (4.8-10.8)
[2024-12-03] MEDS: APIXABAN 5 MG TABLET PO SCH (07:29)
[2024-12-03] MEDS: dexAMETHasone 4 MG TAB PO SCH (07:29)
[2024-12-03] MEDS: CeleBREX 200 MG CAP PO SCH (07:30)
[2024-12-03 07:33] LABS: Calcium 8.5 mg/dl (8.6-10.3); Potassium 4.3 mmol/L (3.5-5.1)
[2024-12-03 07:38] LABS: BUN Creatinine Ratio 20.3 (10-20); Creatinine Clr Calc Pharmacy 77.3 ml/min
[2024-12-03 08:07] VITALS: RESP 18; TEMP 98.1; O2SAT 95
--- NOTE | 2024-12-03 10:07 | Orthopedic Progress Note ---
Date of Service December 03, 2024 Assessment & Plan (1) S/P hip replacement: Plan: Total hip precautions reviewed PT/OT Weightbearing as tolerated with walker assistance Keep Silverlon dressing in place until follow-up DVT prophylaxis with COY stockings and Eliquis Pain controlled p.o. medication Ice with easy wrap Abduction pillow use x 6 weeks Follow-up at [facility] orthopedics as previously scheduled With questions contact our clinic at [phone] Admission and Anticipated Discharge Date Admission Date: December 02, 2024 Subjective This 69-year-old female is day 1 status post right total hip arthroplasty. Patient states she is doing very well this morning. She did not have some episodes of hypotension yesterday that required fluid boluses. She was also evaluated by medicine service. Patient is doing much better today. She has no complaints of chest pain, shortness of breath, fever, chills, sweats, nausea, vomiting, diarrhea or difficulty voiding. She has no numbness or tingling in her right lower extremity. She states she has been able to fully participate with physical therapy occupational therapy and is hoping to be discharged home later this morning. Review of Systems Review of Systems: All systems reviewed & are unremarkable except as noted in Subjective Physical Exam Physical Exam: Right hip: Outer dressing is removed. Silverlon is clean dry and intact left in place. Patient is able to easily transition from a seated to a standing position with the assistance of her walker. She is able to perform active straight leg raise test. She is able to actively dorsi and plantarflex her foot. She tolerates light passive hip flexion to 80 degrees and has no discomfort with light passive internal or external hip rotation. Patient is neurovascularly intact in right lower extremity. Quad strength is 4 out of 5. Results & Data Vital Signs (Past 12 Hours) Vital Signs Temp Pulse Pulse Resp BP Pulse Ox O2 Del Method 12/03/24 08:04 36.7 C 75 18 128/82 95 Room Air 12/03/24 06:00 94 Room Air 12/03/24 02:59 36.8 C 88 16 108/63 94 Room Air 12/02/24 23:00 36.9 C 74 16 114/71 95 Room Air Diagnostic Findings Laboratory Results WBC 6.31 K/ul (4.8-10.8) 12/03/24 05:35 RBC 3.21 M/uL (4.20-5.40) L 12/03/24 05:35 Hgb 10.5 g/dl (12.0-16.0) L 12/03/24 05:35 Hct 31.1 % (37.0-47.0) L 12/03/24 05:35 MCV 96.9 fL (80.0-100.0) 12/03/24 05:35 MCH 32.7 pg (25.0-34.0) 12/03/24 05:35 MCHC 33.8 g/dL (32.0-36.0) 12/03/24 05:35 RDW Std Deviation 46.1 fL (36.4-46.3) 12/03/24 05:35 RDW Coeff of Aimee 13.0 % (11.5-14.5) 12/03/24 05:35 Plt Count 174 K/uL (130-400) 12/03/24 05:35 MPV 10.8 fL (9.4-12.4) 12/03/24 05:35 Immature Gran % (Auto) 0.3 % 12/03/24 05:35 Neut % (Auto) 71.4 % 12/03/24 05:35 Lymph % (Auto) 15.1 % 12/03/24 05:35 [place] % (Auto) 12.2 % 12/03/24 05:35 Eos % (Auto) 0.5 % 12/03/24 05:35 Baso % (Auto) 0.5 % 12/03/24 05:35 Neut # (Auto) 4.51 K/uL (1.40-6.50) 12/03/24 05:35 Lymph # (Auto) 0.95 K/uL (1.20-3.40) L 12/03/24 05:35 [place] # (Auto) 0.77 K/uL (0.11-0.59) H 12/03/24 05:35 Eos # (Auto) 0.03 K/uL (0.00-0.50) 12/03/24 05:35 Baso # (Auto) 0.03 K/uL (0.00-0.20) 12/03/24 05:35 Immature Gran # (Auto) 0.02 K/uL (0.01-0.20) 12/03/24 05:35 Sodium 141 mmol/L (136-145) 12/03/24 05:35 Potassium 4.3 mmol/L (3.5-5.1) 12/03/24 05:35 Chloride 109 mmol/L (98-107) H 12/03/24 05:35 Carbon Dioxide 28 mmol/L (21-32) 12/03/24 05:35 Anion Gap 4 (3-11) 12/03/24 05:35 BUN 14 mg/dl (6-23) 12/03/24 05:35 Creatinine 0.69 mg/dl (0.6-1.2) 12/03/24 05:35 Est Cr Clr Drug Dosing 77.3 ml/min 12/03/24 05:35 eGFR 95.06 12/03/24 05:35 BUN/Creatinine Ratio 20.3 (10-20) H 12/03/24 05:35 Glucose 103 mg/dl (70-99(Fasting)) H 12/03/24 05:35 Calcium 8.5 mg/dl (8.6-10.3) L 12/03/24 05:35 Impressions Pelvis X-Ray 12/02/24 08:52 XR pelvis 1-2V routine HISTORY: 69 years-old Female In PACU - Post Surgical COMPARISON: 11/22/2024 TECHNIQUE: AP view of the pelvis FINDINGS: Bilateral hip arthroplasties. Expected postoperative soft tissue swelling and deep tissue air surrounding the right hip arthroplasty. No acute fracture or an expected opaque foreign body. IMPRESSION: Right hip arthroplasty with expected postoperative changes. ACT 112: Negative or not required by law. The above report was generated using voice recognition software. It may contain grammatical, syntax or spelling errors. Electronically signed by: Fabrice Dobbs M.D. 12/02/2024 10:11 AM
--- NOTE | 2024-12-03 10:15 | Discharge Summary ---
Date of Service December 03, 2024 Admission HPI Per Admitting Provider History of Present Illness (including history relevant to procedure): This 69-year-old female presents to the clinic today for preoperative history and physical. Patient had her left hip replacement Dr. Vicente at the end of November 2021. She states her left is doing great. She states that over the past several months she is developed pain in her right groin especially when she is on her feet for long periods of time. She feels her range of motion is also limited. She states that symptoms are very similar to those that she experienced before her left hip replacement. Patient is electing to proceed w [facility] surgical intervention at this time. Review Of Systems: A 12 point review of systems is performed and is unremarkable except for those things stated in the HPI and past medical history. Past Medical History: Problems: Cough Post-nasal drip Left thigh pain Dyspareunia, female History of vertebral compression fracture Encounter for gynecological examination Tricuspid regurgitation Right knee pain Left wrist pain Radial head fracture Fracture Arthritis CVA (cerebrovascular accident) S/p mitral valve repair Vitamin D deficiency Severe mitral regurgitation Heart murmur, systolic Bunion of right foot Hypertension Weight disorder Uveitis Tobacco abuse Melanocytic nevus of trunk Senile hyperkeratosis Procedure History Procedure Procedure Date Comments Fracture of wrist - repair - 12 yrs ago Fracture - has had multiple fracture - use to ride horse - Clavicle, Ankle, right arm, left foot, vertebral, tail bone - No surgical intervention. PAP test date - wnl Mammogram 10/08/2024 - Repeat in 1 yr Mammogram 10/06/2023 - IMPRESSION: ACR BI-RADS CATEGORY 2: BENIGNThere is no mammographic evidence of malignancy. A 1 year screening mammogram is recommended Chest X-ray 02/09/2023 - Impression:1. Cardiomegaly without acute process. 2. Ill-defined 1.4 cm opacity projects over the right upper lung. This may be secondary to summation density however attention at follow-up recommended in order to exclude a pulmonary nodule.3. Subtle cortiacl irregularity of the lateral right sixth rib. Correlate with point tenderness. 4. No pneumothorax. Plain X-ray of right wrist 02/09/2023 - IMPRESSION: 1. Limited exam secondary to positioning.2. Intact ORIF hardware of the distal radius.3. Mild cortical irregularity of the distal radial cortex suggestive of a subtle acute nondisplaced intra-articular fracture. CT of pelvis without contrast 02/09/2023 - IMPRESSION: 1. Moderate to severe osteoarthritis of the right hip without acute fracture or dislocation identified.2. Confirmation of the right-sided pelvic ring fractures with surrounding posttraumatic hemorrhage extending into the right inferior pelvis and adjacent adductor musculature.3. Small contusion w ithin the subcutaneous tissues lateral to the right hip.4. Unremarkable appearance of the left hip total joint arthroplasty. CT brain without contrast 02/09/2023 - Impression: No acute intracrainal abnormality or calvarial fracture. X-ray tomography of pelvis and right hip 02/09/2023 - Impression:1. No acute fracture or dislocation identified within the right hip.2. Acute mildly displaced right superior pubic ramus fracture with equivocal acute nondisplaced inferior pubic ramus fracture.3. Moderate osteoarthritis of the right hip.4. Left hip arthroplasty. Mammogram 09/17/2022 - Impression ACR BI RADS CATEGORY 2: BENIGN X-ray of right knee 05/25/2021 - Impression: Dengenerative change as above with no acute bony abnormality identified. X-ray of ribs min 2V w CXR1V 04/24/2021 - Impression: 1. No acute cardiopulmonary abnormality. 2. No acute rib fracture identified. Skeletal X-ray of pelvis and hip 09/25/2020 - 1. No acute fracture or dislocation within the pelvis or hips.2. Mild right and moderate left hip osteoarthritis3. Chronic thickening of the bilateral femoral necks, unchanged. Screening mammogram of bilateral breasts 09/24/2019 - There is no mammographic evidence of malignancy. A 1 year screening mammogram is recommended. Elbow X-ray 01/04/2019 - Radial head fracture- right sided. Papanicolaou smear taken 08/25/2018 - Negative for intraepithelial lesion or malignancy. Atrophic pattern; predominantly parabasal cells. Mammogram 03/25/2018 - There is no mammographic evidence of malignancy. A one year screening is recommended. X-ray of left foot 11/27/2016 - 1. No acute fractures identified on conventional radiographic imaging2. Osteoarthritic changes at the level of the tarsometatarsal joints Brain MRA 10/09/2016 - No significant stenosis, occlusion, or aneurysm within the [place] MRA 10/09/2016 - 1. No significant stenosis, occlusion, or dissection identified within the common carotid, internal carotid or vertebral arteries2. Moderate to severe stenosis abdullahi the origin of the right external carotid artery MRI of the brain combo 09/27/2016 - 1. There is a small acute to subacute cortical infarct identified involving the left parietal cortex2. An additional punctate lacunar infarct is seen within the left parietal subcortical white matter3. There is no hemorrhage or mass effect. No enhancing mass is identified. 4. Paranasal sinus disease as above. MVR - Mitral valve repair 04/24/2016 Cardiac catheterization 02/20/2016 Transthoracic echocardiogram 01/05/2016 Bone density scan 08/24/2015 - AP spine- L3-L4- Tscore -1.7Femur- Neck left- Tscore -0.9Femur- neck right- tscore- -1.7Femur- total mean- tscore -1.1 PAP test date 05/19/2015 - Negative for intraepithelial lesion or Malignancy. Mammogram 05/04/2013 - No mammographic evidence for malignancy. 1 yr screening is recommended Swab of endocervix 09/20/2011 - Negative for intraepithelial lesion or malignancy Colonoscopy 09/16/2007 - The colon is normalTerminal ileum is normalRepeat colonoscopy in 5 yrs Allergies and Sensitivities: Allergy Not found in Search Current Home Meds: (Last Updated 11/22 16:03) acetaminophen (Tylenol Extra Strength) amoxicillin (amoxicillin 500 mg oral capsule) 2,000 mg PO As indicated one hour before dental and other procedures as directed apixaban (apixaban 5 mg oral tablet) 5 mg PO bid aspirin (aspirin 81 mg oral delayed release tablet) 81 mg PO Daily cephalexin (cephalexin 500 mg oral capsule) 500 mg PO tid cyclobenzaprine (cyclobenzaprine 10 mg oral tablet) TAKE 1 TABLET BY MOUTH TWICE DAILY NEEDED FOR MUSCLE SPASM docusate (Colace) metoprolol (Toprol-XL 50 mg oral tablet, extended release) 50 mg PO qhs Initial Wt: No Data Available Admission Exam Per Admitting Provider Physical Exam: (relevant to the procedure, including heart and lung evaluation) General: Alert and oriented x 3 with proper grooming and hygiene Eyes: Pupils are equal and reactive to light with accommodation. Extraocular moods are intact Throat: Posterior oropharynx clear with absence of edema, erythema or exudate. Dentition is appropriate Cardiac: Grade 2/6 holosystolic murmur heard best over the left lower sternal border and apex. No gallops appreciated regular rate and rhythm. Lungs: Clear to auscultation throughout with no wheezing, rales or rhonchi Abdomen: Nonobese, nondistended, nontender with NABS Extremities: Right hip; flexion to 115 degrees with referred pain in the groin. External rotation to 35 degrees and internal rotation to 0 degrees. Straight leg raise test, Stinchfield test and logroll test are all positive. Scour and impingement tests are both positive. Patient is neurovascularly intact. Neuro: Cranial nerves II through XII are intact no motor or sensory deficit Skin: Normal in appearance no open skin areas or discharge Principal Diagnosis Right hip osteoarthritis Discharge Exam Right hip: Outer dressing is removed. Silverlon is clean dry and intact left in place. Patient is able to easily transition from a seated to a standing position with the assistance of her walker. She is able to perform active straight leg raise test. She is able to actively dorsi and plantarflex her foot. She tolerates light passive hip flexion to 80 degrees and has no discomfort with light passive internal or external hip rotation. Patient is neurovascularly intact in right lower extremity. Quad strength is 4 out of 5. Discharge Data Allergies Allergy/AdvReac Type Severity Reaction Status Date / Time salmon oil Allergy Severe Facial Verified 12/02/24 05:41 Swelling Consultations 12/02/24 17:32 Consult Hospitalist Routine Procedures Performed Operation Date: 12/02/24 07:00 Actual Procedures p Right Total Hip Arthroplasty(Right) - Ramses Vicente MD Hospital Course (1) S/P hip replacement: Patient had episodes of hypotension after surgery that required 2 fluid boluses and evaluation by the medicine service. She is doing much better this morning. Her pressure has normalized. She is hoping to be discharged home later this morning. Total hip precautions reviewed PT/OT Weightbearing as tolerated with walker assistance Keep Silverlon dressing in place until follow-up DVT prophylaxis with COY stockings and Eliquis Pain controlled p.o. medication Ice with easy wrap Abduction pillow use x 6 weeks Follow-up at [facility] orthopedics as previously scheduled With questions contact our clinic at [phone] Total Time Total Time Spent Total Time Spent (In Minutes): 25 mins Discharge Plan Discharge Items Patient Disposition: Home - Home Health Services Reason For Visit: Osteoarthritis Hip Right Discharge Diagnosis: s/p left total hip arthroplasty Activity: As commented below Lifting: None Bathing: Keep incision dry Bathing Comment: May shower later today Sexual Activity: Wait until after follow-up appointment Exercise/Sports: Wait until after follow-up appointment Driving/Machine Use: No driving until cleared by emission specialist Weightbearing: Right weightbearing Weightbearing Comment: As tolerated with walker assistance Non-emergency contact: Surgeon Call non-emergency contact if: you have any medication questions, your pain is not controlled, your temperature is above 101.5, your wound has increased drainage and your wound pain has increased Follow-up/Referrals: Caorlyne Larsen MD [Primary Care Provider] - Diet: Regular Addtl Attending Provider Instructions: Post-operative Instructions Dear Patient and Family/Friends, Before you are discharged from the hospital, it is important to know what to expect when you get home after surgery. To that end, we have created this sheet of discharge instructions which covers many commonly asked questions. Make sure you go through this sheet in its entirety with your nurse before you are discharged. Please note that we will go over the specifics of your surgery and recovery when you return for your first post-operative visit. Sincerely, Dr. Vicente Medications 1. Tramadol 50 mg tablet: Take 1 to 2 tablets every 4-6 hours as needed for postoperative pain control. A prescription at this visit medication will be sent to your pharmacy. 2. Eliquis: Resume your daily Eliquis regimen for DVT prophylaxis. 3. Zofran 4 mg tablet: Take 1 tablet every 6-8 hours as needed for postoperative nausea and vomiting. 4. Diclofenac sodium 75 mg: Take 1 tab twice daily for the first 30 days postoperatively for pain and inflammation relief. This will be sent to your pharmacy with 1 refill 5. Extra strength Tylenol 500 mg: Take 2 tabs every 6-8 hours as needed for additional pain relief. Please purchase this medication. Pain Expect to be in a fair amount of pain after surgery. Remember, our goal is not to eliminate your pain, but to make it tolerable. It is a good idea to stay ahead of your pain by taking the medications you were prescribed once you get home. Typically, the pain starts improving 3-7 days after surgery. You should s tart weaning off the narcotic pain medication (oxycodone, hydrocodone, hydromorphone, morphine) as soon as your pain improves. Please call our office if your pain is not adequately controlled. Ice Ice your operative site at least 5 times a day for 15-30 minutes at a time. Make sure you have a thin cloth between the ice or cooling unit and your skin to prevent renee bite. This is especially important if you received a nerve block. Continue icing your operative site for the first 5-7 days after surgery, then as needed. Diet/Nausea/Vomiting Start by drinking clear liquids and eating crackers. If you can tolerate this, then you may resume your normal diet. If you feel nauseated or vomit, take Zofran/ondansetron (if prescribed). Please call our office if you have intractable nausea or vomiting, or, if after hours, you may go to the Emergency Room for help. Constipation Constipation is a common side effect of narcotic pain medication. If you have not had a bowel movement within 2 days after surgery, we recommend purchasing an over the counter laxative such as Milk of Magnesia, Dulcolax, or Miralax from a local pharmacy, and taking it as instructed. Call our clinic if any questions. Nerve block The anesthesia team sometimes places a nerve block to help with post-operative p ain control. This results in significant numbness and inability to move the extremity. The nerve block usually wears off in 8-12 hours, but sometimes can last up to 24 hours. Please call our office if you are still unable to move your extremity after 24 hours, unless you received a pain pump to take home. Nerve blocks typically wear off quickly, so start taking pain medication as soon as you start feeling soreness near your surgical site. Weight bearing and Range of Motion. Do not bear any weight through your operative extremity immediately after surgery. If you had upper extremity surgery, do not lift anything with that arm. If you are in a knee brace, keep it locked in place until your follow-up. We will discuss your weight bearing, range of motion, and lifting restrictions in detail at your first post-operative appointment. Continuous Passive Motion (CPM) Machine If you were prescribed a CPM machine, it will start after your first post- operative appointment, at which time we will give you instructions on the range of motion settings and duration of treatment Physical therapy You will be given a prescription for physical therapy or occupational therapy at your first post-operative appointment. Typically, patients start therapy within 1 week of surgery Wound care and showering We will inspect your wound at your first post-operative visit, and may do a dressing change at that time. Most patients will be in a water-proof dressing that is removed 14 days after surgery. It is normal to see some dried blood on the dressing. Do not remove your dressing, paper strips or sutures yourself unless you are given permission. Showering is allowed the day after surgery. Do not scrub or remove any dressings. The wound should not be submerged underwater (i.e. in a bathtub or pool) until 4 weeks after surgery COY stockings If you were given white stockings, these are to be worn at all times except to shower (on both legs) for the first 2 weeks after surgery. Driving You may not drive while taking narcotic pain medication or while in a cast, splint, sling or brace. You, the patient, need to make the final determination about when you are safe to drive, however, the earliest you may consider driving after surgery is below: Hand/Wrist/Elbow Surgery: 3 days Shoulder Surgery: 2 weeks Hip,/Knee/Ankle Surgery: 4 weeks Fracture repair: 6 weeks Return to Work Your return to work depends on what surgery was done and what type of work you do. Please bring any paperwork your employer needs completed to your first post-operative visit. Also, bring a description of your job duties, as this helps us to understand what risks you may face at work. Travel Avoid long distance travel (greater than 1 hour) in airplanes and cars for the first 6 weeks after surgery. If you must travel, you need to have a Doppler ultrasound done before you travel to rule out a blood clot in your legs. Follow-up You should have a follow-up appointment already scheduled 1-2 days after surgery. If not, please contact our office to make this appointment before you leave the hospital. When to call the office It is normal to have swelling and bruising in the limb that was operated on. This will improve with time. It is also normal to have fevers for the first 2 days after surgery. Reasons you should call your doctor include: Uncontrolled pain; Nausea, vomiting, or constipation that does not improve with medication; Fevers over 101.5, chills, sweats; Drainage or bleeding from the wound; Foul odor; Spreading areas of redness; Any other concerns. Contact Information Please call Dr. Vicente's office at [phone] with any concerns. Pending Studies at Discharge: No Stand-Alone Forms: My [facility] Medications and DC Order Prescriptions: New tramadol 50 mg Tablet 50 mg PO Q4H MDD Max 6/day; Ongoing Tx PRN (Reason: post op pain control) Qty: 28 0RF ondansetron 4 mg tablet,disintegrating 4 mg PO Q8H Qty: 14 0RF diclofenac sodium 75 mg tablet,delayed release (DR/EC) 75 mg PO BID 30 Days Qty: 60 1RF Continued metoprolol succinate 50 mg Tablet Extended Release 24 Hr 50 mg PO HS Eliquis 5 mg Tablet 5 mg PO BID Hold Instructions: Resume on 02/12/23. aspirin 81 mg Capsule 81 mg PO HS Hold Instructions: Resume on 02/12/23. acetaminophen [Tylenol Extra Strength] 500 mg tablet 1,000 mg PO TID PRN (Reason: Pain) Discharge Orders: Discharge Order (Routine); Ordered 12/03/24 Ordered By: Raimundo Diana Admission Data Admit Date/Time: 12/02/24 08:52 Attending Provider: Ramses Vicente Admit Provider: Ramses Vicente Primary Care Provider: Carolyne Larsen Other Providers: Maritza Vale
[2024-12-03 10:21] VITALS: BP 106/68; PULSE 88
--- NOTE | 2024-12-03 10:23 | Hospitalist Progress Note ---
"Date of Service December 03, 2024 Assessment & Plan (1) S/P hip replacement: (2) Postoperative hypotension: Plan Carole is a 69F w/ PMH of heart valve repair ([facility] 2016), post-op CVA ([facility] 2016), and hypertension who presented for right hip arthroplasty which was performed 12/02/24. Hospitalist service consulted for evaluation and management of post- operative hypotension. S/p R Hip Replacement | Post-Op Hypotension Post op hypotension resolved with IVFs. BPs are better today and patient denies any furher dizziness or lightheadedness. Hgb slight decrease from yesterday to 10.5, suspect acute blood loss anemia and dilutional effect. Pain is well controlled. Okay to continue metoprolol tonight. Continue Aspirin and Eliquis - recommend against diclofenac, given NSAID, high risk for GI bleed. Discussed with patient she is comfortable with Tylenol and t ramadol for pain regiment. - S/p CVA / Heart surgery/Valve repair w/ subsequent thrombus - Eliquis/Aspirin continued, pt reports these are to be life long Dispo: Medically stable. Agree with discharge without diclofenac. Admission and Anticipated Discharge Date Admission Date: December 02, 2024 Supervising Physician Co-Signing Physician Notes PA Supervision Note: I did not personally see or examine the patient today, but I verified all huang points of CARRIE Mccallum's assessment and plan with the following exceptions/additions: None Subjective Patient seen ambulating in the room. Pain is well controlled Passing gas, but no BM since surgery. 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 She denies a history of afib. Review of Systems Review of Systems: All systems reviewed & are unremarkable except as noted in Subjective Physical Exam Physical Exam: General: NAD, VS as above, ambulating independently in the room with walker Resp: normal respiratory effort, lungs clear to auscultation CV: RRR, no murmur, Abd: normal bowel sounds, non tender, no hepatosplenomegaly Extremities: Moves all extremities Neuro: A&O x3, Results & Data Results & Data Vital Signs (Past 12 Hours) Vital Signs Temp Pulse Pulse Resp BP BP Pulse Ox 12/03/24 10:19 98.1 F 75 88 18 128/82 106/68 95 12/03/24 08:04 98.1 F 75 18 128/82 95 12/03/24 06:00 94 12/03/24 02:59 98.2 F 88 16 108/63 94 12/02/24 23:00 98.4 F 74 16 114/71 95 O2 Del Method 12/03/24 10:19 12/03/24 08:04 Room Air 12/03/24 06:00 Room Air 12/03/24 02:59 Room Air 12/02/24 23:00 Room Air Laboratory Results CBC and chemistry reviewed PG Care Time/CCT Total # of Minutes Spent Total Time Spent with Patient: Total time spent is greater than 50% in coordination of care (as documented) at patient's floor/unit and/or counseling patient: Coding Level of Care Code 51342 SUB INP/OBS CARE 2/35MIN Diagnoses S/P hip replacement Z96.649 Postoperative hypotension I95.81"
[2024-12-03] MEDS ORDERED: ASPIRIN 81 MG ECTAB PO SCH (21:00)
== END 2024-12-03 11:54 | disposition home health service (06) | DRG 470 ==
LOC: ASU 05:17 → 3E 08:52 → INTOOBSV 08:52